=== PATIENT | male | born 1950 | race Caucasian/White ===

== ENCOUNTER 2019-02-11 07:28 | Day surgery (SDC) | payer BC, SELFPAY ==
[2019-02-02 14:42] VITALS: BMI 28.2
[2019-02-02 17:03] LABS: Absolute Neutrophil Count 4.4 X10^3/uL (2.0-7.7); Basophil# 0.06 X10^3/uL; Basophil% 0.9 % (0-1); Eosinophil# 0.13 X10^3/uL; Eosinophils% 1.9 % (0-5); Hematocrit 46.1 % (40-54); Hemoglobin 15.3 g/dL (13.0-16.5); Lymphocyte % 19.3 % (19-41); Mean Corp Hgb Conc 33.2 g/dL (32-36); Mean Corpuscular Hgb 31.6 pg (27.0-32.0); Mean Corpuscular Volume 95.2 fL (80-94); Monocyte% 11.9 % (0-10); NRBC Flagged by Analyzer 0 % (0-5); Neutrophil # 4.43 X10^3/uL (2.7-7.7); Neutrophil % 65.6 % (47-70); Platelet Count 206 K/mm3 (150-450); RBC Distribution Width CV 13.1 % (11.6-14.6); RBC Distribution Width SD 44.6 fl (35.1-43.9); Red Blood Count 4.84 M/mm3 (4.6-6.2); White Blood Count 6.8 K/mm3 (4.4-11.0)
[2019-02-02 17:12] LABS: Partial Thromboplast Time 26.5 Seconds (24.1-36.2); Prothrombin Time (Protime)PT. 12.8 SECONDS (11.7-14.9)
[2019-02-02 18:10] LABS: Anion Gap 9 (5-15); BUN 10 mg/dL (7-18); BUN/Creat Ratio 10.9 RATIO (10-20); Calcium,Total 9.2 mg/dL (8.5-10.1); Chloride 101 mmol/L (98-107); Creatinine, Serum 0.92 mg/dL (0.70-1.30); EST Glomerular Filtration Rate 87 mL/min (>60); Est Glom Filt Rate - Afr Amer 105 mL/min (>60); Glucose 97 mg/dL (74-106); Potassium 3.9 mmol/L (3.5-5.1); Sodium Level 140 mmol/L (136-145)
[2019-02-11] VITALS (28 sets, daily range): BP systolic 76–185; BP diastolic 51–110; PULSE 63–106; RESP 14–45; TEMP 35.7–36.3; O2SAT 82–97; BMI 26.0; BMI 25.7; BMI 25.8
[2019-02-11] MEDS: 0.9% Normal Saline 1,000 ML 60 ML IV (11:45)
[2019-02-11] MEDS: hydrALAZINE 20 MG/ML Vial 5 MG IV (12:35)
--- NOTE | 2019-02-11 12:38 | DCINST_ITS ---
Discharge Diet: Low fat/ Low Cholesterol Discharge Activity: Return to Normal Activity May shower in (days): 1 - No tub baths for 5 days May resume sexual activity in: 1-2 weeks Lifting Restrictions: Do not lift anything greater than 10 pounds for 3 days Call your doctor if your incision/area has: Continuous Slow Oozing, Sudden Increased Bleeding, Increased Pain/ Swelling, Increased Redness, Foul Smelling Discharge, Swelling at the incision site Call your doctor if you observe: Fever of 101 or Higher, Shortness of breath, Chest pain Remove Dressing in (days):: 1 Cleanse incision/area with: Soap & Water Additional Instructions: You will continue with Aspirin and Brilinta therapy. Brilinta is an antiplatelet medication needed for coronary artery disease and protection for your stents for at least one year. If anyone asks you to stop this medication please call the [facility] Office at [phone]. You will keep your scheduled office appointment with Dr. Martinez on 03/21/2019 at 11 AM. Please consider cholesterol-lowering medication also known as a statin medication. This is beneficial to limit coronary artery disease and preserve bypass graft. If you have any questions or concerns at any point please call the [facility] Office at [phone]. Allergies/Adverse Reactions: Allergies No Known Allergies Allergy (Unverified 02/02/19 14:31) Medications to take at Discharge aspirin 81 mg tablet,delayed release 81 mg PO DAILY #90 tab 02/03/19 carvedilol 6.25 mg tablet 6.25 mg PO BID #180 tab 02/03/19 furosemide 40 mg tablet 40 mg PO QAM #90 tab 02/03/19 lisinopril 20 mg tablet 20 mg PO DAILY #90 tab 02/03/19 Ticagrelor [Brilinta] 90 mg PO BID #180 tab 02/11/19 The following prescriptions were given: Ticagrelor [Brilinta] 90 mg PO BID #180 tab Transmission Status: Pending to [facility]/pharmacy #[id number] Primary Care Physician: Care Physician,No Primary [Primary Care Provider] - Test Results: Test results from this visit will be discussed in further detail at your follow- up appointment, if applicable. Please Follow Up With: Dr. Martinez When: 03/21/2019 at 11:00 AM Proposed Discharge Date: 02/12/19 Cardiac Rehabilitation Info Cardiac Rehabilitation Program Information: Cardiac Rehabilitation is important for patients like you who are recovering from a heart problem. Cardiac rehabilitation programs are recognized as integral to the continued care of the patient with coronary heart disease. The cardiac rehabilitation program is designed to optimize a patient's physical, psychological, and social functioning. Health child day care provider work in cardiac rehabilitation programs and assist you with getting the treatments you need to get stronger and healthier - like exercise, healthy eating habits, and medications. Cardiac rehabilitation has been show to help people with heart problems live longer and have better life enjoyment than people who do not go to cardiac rehabilitation. Please contact the Cardiac Rehabilitation Program at [facility] at in two weeks if you have not heard from them.
[2019-02-11] MEDS: Furosemide 40 MG/4 ML Vial IV (12:52)
--- NOTE | 2019-02-11 12:55 | NURSING ---
Sudden onset severe SOB, diaphoretic, RR 40's, labored and tripoding. Denies chest pain. Lungs coarse t/o. BP elevated. Dr. Martinez notified. Attempted bipap, pt unable to tolerate. Stat EKG obtained
[2019-02-11] MEDS: 0.9% NaCl Peripheral Flush Adult/Peds IV ×2 (13:01→13:19)
[2019-02-11] MEDS: Morphine 2 MG/ML Syringe 1 MG IV (13:05)
[2019-02-11] MEDS: Nitroglycerin Infusion 250 ML 12 MG CONT INF (13:09)
--- NOTE | 2019-02-11 13:21 | CASEMGMT ---
RN CM Note: Attempted to see pt x 2. Will need Brillinta Savings card on dc. Placed in front of chart. Randal DIETZN RN ACM
--- NOTE | 2019-02-11 13:30 | CL.I_ITS ---
Patient Name: NICHOLE HURTADO Study Date: 02/11/2019 Performing: Soraya Martinez MD Ht: 69 inches 175 cm : 1950 Wt: 172 lbs 77.92 kg Age: 68 Gender: male BSA: 1.93 PROCEDURE(S) PERFORMED [id number]/LV/CABG [id number] AND/OR PTCA, SINGLE GRAFT [id number] W OR WO PTCA, SINGLE CORONARY ARTERY CLINICAL PROFILE AND CO-MORBIDITIES Indications: Cardiomyopathy Heart Failure: NYHA Class: 3, Newly Diagnosed: No, Heart Failure Type: Systolic CAD Presentations: Unstable angina. CONCLUSIONS Successful PCI with Drug eluting stent and PTCA to the dLAD at the anastomosis of ORELLANA to LAD and MERLE to distal portion of ORELLANA to LAD Successful PCI with Drug eluting stent and PTCA to the dLAD at the anastomosis of ORELLANA to LAD and MERLE to distal portion of ORELLANA to LAD RECOMMENDATIONS ASA Indefinitley Brilinta for at least 12 months Routine post interventional care Follow up with primary transplanter DESCRIPTION OF PROCEDURE The patient arrived to the procedure lab. The risks and benefits of the procedure as well as a full d escription of our services here and lack of surgical backup were fully explained to the patient and/o r their significant other prior to the catheterization. The Timeout was completed, verifying the michaela ect patient and procedure. The patient's procedural site was prepped and draped in the usual fashion. Local anesthetic was given subcutaneously to left radial region with Lidocaine 2%. Using a modified Seldinger technique, arterial access was obtained via the left radial artery, a 6Fr sheath was insert ed.. Left internal mammary artery graft to the LAD selective angiography was performed in multiple v iews using a 5 Fr. IM catheter. Left Ventriculography was performed in NEIL projection using a 5 Fr. J R4. LV to AO pullback pressures were then recorded. Right Coronary Artery selective angiography was t hen performed in multiple views using a 5 Fr. JR 4 catheter. Left Coronary Artery selective angiography was performed in multiple views using a 5 Fr. JL3.5 catheter IM Guide catheter was inserted and engaged into the ORELLANA. BMW Guide wire was advanced to the LAD. Emerge 2.00x8 Balloon catheter was inserted. PTCA balloon inflated at 8 atms for 19 secs. Angiogram performed post balloon dilatation. Synergy 2.25x8 Drug Eluting stent was inserted. Angiogram performe d post stent deployment. Synergy 4.00x16 Drug Eluting stent was inserted. Angiogram performed post st ent deployment. The arterial sheath was pulled and a TR Band was applied for hemostasis w/ 14ml air CORONARY ANGIOGRAPHY DOMINANCE: Right Dominant LEFT HEART ASSESSMENT Left Ventricular Ejection Fraction: by LV Gram 20 % Global Hypokinesis - Severe LEFT MAIN: Mild luminal irregularities LEFT ANTERIOR DESCENDING ARTERY: OSTIAL LAD: is occluded, mid and distal LAD fill via ORELLANA which is patent. CIRCUMFLEX ARTERY: PROX CIRC: 30 % Stenosis RIGHT CORONARY ARTERY: PROX RCA: 100 % Stenosis. distal RCA fills via collaterals from LAD which fills via ORELLANA GRAFTS: ORELLANA graft to the LAD is patent with what appears to be a kink or napkin ring narrowing causi ng about 80% stenosis. There is a an 80-90% stenosis in the anastomosis with the LAD. Since this was the main vessel supplying the majority of the myocardium, and the patient has new drop in EF, we proc eeded with PCI. The ORELLANA kink/ napkin ring lesion was also fixed to ensure there is no proximal compr omise to flow into the stent in the anastomosis of ORELLANA to LAD. VALVE FINDINGS: No Aortic Valve Stenosis No Mitral Insufficency INTERVENTION INFORMATION LESION SITE: LAD (Distal) ORELLANA > to LAD (Mid) Segment Number: 13-Mid-LAD artery segment - mLAD , Les ion Location: Distal Lesion Complexity: High/C, chronic total occlusion: No, lesion at bifurcation: No, thrombus present: No, lesion length: 5 mm, culprit lesion: Yes, Previously treated lesion: No Pre Stenosis: 85 % Pre intervention GRAY flow: 3 PROCEDURE: Drug Eluting Stent with pre dilatation. Post Stenosis: 0 % Post intervention GRAY flow: 3 Lesion Devices: Cardinal 6 Fr IM 100cm Guide Catheter Jim .014 BMW [place] Straight 190cm Willi Sci Synergy MR MERLE 2.25x08 Willi Sci EMERGE MR 2.00x08 BALLOON LESION SITE: ORELLANA > to LAD (Mid) Segment Number: 13-Mid-LAD artery segment - mLAD , Lesion Location : Body Lesion Complexity: High/C, chronic total occlusion: No, lesion at bifurcation: No, thrombus present: No, lesion length: 12 mm, culprit lesion: Yes, Previously treated lesion: No Pre Stenosis: 80 % Pre intervention GRAY flow: 3 PROCEDURE: Drug Eluting Stent Post Stenosis: 0 % Post intervention GRAY flow: 3 Lesion Devices: Cardinal 6 Fr IM 100cm Guide Catheter Jim .014 BMW [place] Straight 190cm Willi Sci Synergy MR MERLE 4.00x16 COMPLICATIONS No Complications PROCEDURE MEDICATIONS Oxygen: 2 L/min via nasal cannula Brilinta 180 mg PO @ 02/11/2019 11:16:15 Heparin given IA 02/11/2019 10:09:35 Heparin 3000 unit(s) IV 02/11/2019 10:32:15 Nitro 200 mcg IC 02/11/2019 10:50:10 Verapamil 2.5mg, Ntg 100mcgs, 3000 units of Heparin given IA 02/11/2019 10:09:35 IV Bolus: .9 NaCl 300 ml total 02/11/2019 11:01:38 SUMMARY OF HEMODYNAMIC DATA Time AIR REST ECG 07:52:47 AO 108/70 (88) SA 10:15:25 LV 128/7, 25 10:20:04 LV 133/4, 22 10:20:11 LV 126/1, 24 10:21:39 LVp 131/3, 21 10:21:50 AOp 132/69 (95) 10:21:55 Signed By Soraya Martinez MD On 02/11/2019 1:29:08 PM Soraya Martinez MD
--- NOTE | 2019-02-11 14:12 | CPS ---
RT called stat for bipap therapy, pt diaphoretic, tripod breathing. Bipap therapy attempted x2, tried encouraging pt, pt could not tolerate bipap. Pt resting comfortably on 4L NC.
--- NOTE | 2019-02-11 14:27 | CRPHASE1 ---
Patient Communication PHII Cardiac Rehab Discussed with Patient:: Yes Guide to Cardiac Rehab Given to Patient:: Yes Cardiac Rehab Facility Choice List Given to Patient:: Yes Choice Program [facility] PHII:: Communication Given to CR, Refer to [facility] Evp Business Development:: Cayla Martinez Phase II Cardiac Rehab:: Yes Sessions:: 36 sessions - 3 days/wk, 12 weeks Risk Factors/Lifestyle Smoking Status: Never smoker Hx Dyslipidemia: Yes Hx Obesity: No Height: 5 ft 9 in Weight:: 175 lb BMI: 25.8 ETOH: No Caffeine: Yes Substance Abuse: No Risk Factor for Sedentary Lifestyle: Moderate Risk Family History: Family History (Last Reviewed 02/02/19 @ 15:16 by Cayla Martinez MD) Father Alzheimer's dementia Mother Heart disease Brother Heart disease Family History: High Cholesterol, Heart Disease, Hypertension, - Past Cardiac Illness: Ejection Fraction - LVEF 17%, Coronary Artery Disease, Coronary Artery Bypass Graft Phase I Education Given On:: [place], Nutrition, Antiplatelet medication, CHF Knowledge of Condition:: Yes Learning Preferences: Verbal, Written, Audio/Visual, Demonstration Medical/Surgical History [place]:: Yes CAD:: Yes Cardiomyopathy:: Yes Hypertension:: Yes Dyslipidemia:: Yes CABG: Yes PTCA:: Yes Discharge/Home/Social Eval Marital Status: Cardiac Rehabilitation Info Cardiac Rehabilitation Program Information: Cardiac Rehabilitation is important for patients like you who are recovering from a heart problem. Cardiac rehabilitation programs are recognized as integral to the continued care of the patient with coronary heart disease. The cardiac rehabilitation program is designed to optimize a patient's physical, psychological, and social functioning. Health day care center director work in cardiac rehabilitation programs and assist you with getting the treatments you need to get stronger and healthier - like exercise, healthy eating habits, and medications. Cardiac rehabilitation has been show to help people with heart problems live longer and have better life enjoyment than people who do not go to cardiac rehabilitation. Please contact the Cardiac Rehabilitation Program at [facility] at in two weeks if you have not heard from them.
--- NOTE | 2019-02-11 14:37 | CRPH1.INSTRU ---
General Education CAD and cardiac anatomy and function:: Not instructed Explanation of diagnoses and procedures:: Not instructed Sign/Symptoms of OK:: Not instructed Antiplatelet therapy: Not instructed Proper use of NTG-SL: Not instructed Emergency procedures and activation of EMS: Not instructed Compliance of all prescribed medications: Not instructed Dyslipidemia Patient Dyslipidemia Risk Factors Are:: Total Cholesterol, Triglycerides, HDL, LDL Recommendations Include:: Lipid profile provided Dyslipidemia Response Code:: Patient communicates acknowledgment Overweight/Obesity Patient Overweight/Obesity Risk Factors Are:: Overweight = 26-29 Recommendations Include:: Weight loss of 5-10%, Reduced calorie diet, Exercise 5-7 times/week Overweight/Obesity:: Patient communicates acknowledgment Hypertension Recommendations Include:: Maintain BP <130/85, DASH dietary guidelines, Decrease/maintain normal body weight Hypertension:: Patient communicates acknowledgment Heart Disease Patient Heart Disease Risk Factors Are:: Family history of heart disease < 65 years old, Previous cardiac event Recommendations Include:: Educated family members of their risk, Educated family members of importance of prevention of heart disease Heart Disease Response Code:: Patient communicates acknowledgment, Family communicates acknowledgment Sedentary Recommendations Include:: Aerobic exercise 5-7 times/week for 20-30 minutes continuously, Benefits of regular exercise, Discussed home walking program, Monitored Outpatient Cardiac Rehab Sedentary Response Code:: Patient communicates acknowledgment Stress Patient Stress Risk Factors Are:: Patient denies stress as a risk factor Stress Response Code:: Patient communicates acknowledgment
[2019-02-11] MEDS: TICAGRELOR 90 MG TABLET PO (20:56)
[2019-02-11] MEDS: Carvedilol 6.25 MG Tablet PO (20:56)
[2019-02-12] VITALS (9 sets, daily range): BP systolic 106–154; BP diastolic 59–91; PULSE 66–77; RESP 14–22; TEMP 36.1–36.6; O2SAT 95–100
[2019-02-12 05:11] LABS: Hematocrit 42.5 % (40-54); Hemoglobin 14.5 g/dL (13.0-16.5); Mean Corp Hgb Conc 34.1 g/dL (32-36); Mean Corpuscular Hgb 32.2 pg (27.0-32.0); Mean Corpuscular Volume 94.4 fL (80-94); Mean Platelet Vol. 10.6 fl (6.2-12.0); Platelet Count 156 K/mm3 (150-450); RBC Distribution Width CV 13.5 % (11.6-14.6); RBC Distribution Width SD 46.2 fl (35.1-43.9)
[2019-02-12 05:25] LABS: ALB/GLOB Ratio 1.1 RATIO (0.9-2.4); AST(SGOT) 22 U/L (15-37); Alanine Aminotransfer ALT/SGPT 19 U/L (16-61); Albumin, Serum 3.3 g/dL (3.2-5.0); Alkaline Phosphatase 54 U/L (45-117); Anion Gap 9 (5-15); BUN 17 mg/dL (7-18); BUN/Creat Ratio 20.1 RATIO (10-20); Calcium,Total 8.5 mg/dL (8.5-10.1); Chloride 105 mmol/L (98-107); Creatinine, Serum 0.85 mg/dL (0.70-1.30); EST Glomerular Filtration Rate 96 mL/min (>60); Est Glom Filt Rate - Afr Amer 116 mL/min (>60); Estimated Creatinine Clearance 83.18 ml/min; Globulin 3.1 g/dL (2.2-4.2); Glucose 97 mg/dL (74-106); Potassium 3.9 mmol/L (3.5-5.1); Protein, Total 6.4 g/dL (6.4-8.2); Sodium Level 139 mmol/L (136-145)
[2019-02-12] MEDS: Carvedilol 6.25 MG Tablet PO (08:40)
[2019-02-12] MEDS: Aspirin E.C. 81 MG Tablet PO (08:40)
[2019-02-12] MEDS: Lisinopril 20 MG Tablet PO (08:41)
[2019-02-12] MEDS: TICAGRELOR 90 MG TABLET PO (08:41)
== END 2019-02-12 14:10 | disposition home or self-care (01) ==
LOC: CLSP 07:30 → ICU 02-14 10:18
PROVIDERS: Referring Provider Specialist; Visit Provider Specialist
DX: I25.110 Atherosclerotic heart disease of native coronary artery with unstable angina pectoris (principal); I25.5 Ischemic cardiomyopathy; I11.0 Hypertensive heart disease with heart failure; I50.9 Heart failure, unspecified; Z95.1 Presence of aortocoronary bypass graft; E78.5 Hyperlipidemia, unspecified; R09.89 Other specified symptoms and signs involving the circulatory and respiratory systems; Z79.82 Long term (current) use of aspirin; Z79.899 Other long term (current) drug therapy; Z87.891 Personal history of nicotine dependence
CPT/HCPCS: 36415; 80048; 80053; 85025; 85027; 85610; 85730; 92928; 92937; 93005; 93459; J7030; J7040; Q9967; A4216; C1725; C1769; C1874; C1887; C1894; C9600; C9604; J1327; J1940

== ENCOUNTER → 2019-07-05 09:33 | Outpatient (CLI) | payer BC, SELFPAY ==
[2019-02-11 14:35] VITALS: BMI 25.8
[2019-03-29 14:38] VITALS: BMI 25.7
--- NOTE | 2019-07-05 12:12 | STRESSREP ---
Stress Test Report Procedure: MUGA scan Date: 07/05/2019 Indications: To assess LVEF, cardiomyopathy Report: LVEF by MUGA scan was 31%. Conclusions: Left ventricular ejection fraction was 31%.
== END ==
PROVIDERS: Referring Provider Specialist; Visit Provider Specialist
DX: I25.10 Atherosclerotic heart disease of native coronary artery without angina pectoris (principal); I25.5 Ischemic cardiomyopathy; I10 Essential (primary) hypertension; Z95.1 Presence of aortocoronary bypass graft; Z95.5 Presence of coronary angioplasty implant and graft
CPT/HCPCS: 78473; A9560

== ENCOUNTER 2019-09-08 09:47 | Day surgery (SDC) | payer BC, SELFPAY ==
[2019-02-11 14:35] VITALS: BMI 25.8
[2019-07-12 13:50] VITALS: BMI 25.7
[2019-08-01 10:05] LABS: Bacteria 0 SEEN /hpf (None Seen); Mucous, Urine 0 SEEN /hpf (<or=2+); Red Blood Cells-Urine 0 SEEN /hpf (0-5); Squamous Epithelial Cells - UA 0 SEEN /hpf (0-5); White Blood Cells 0 SEEN /hpf (0-5)
[2019-08-01 10:30] LABS: Hematocrit 37.8 % (40-54); Hemoglobin 13.4 g/dL (13.0-16.5); Mean Corp Hgb Conc 35.4 g/dL (32-36); Mean Corpuscular Hgb 33.9 pg (27.0-32.0); Mean Corpuscular Volume 95.7 fL (80-94); Mean Platelet Vol. 9.8 fl (6.2-12.0); Platelet Count 175 K/mm3 (150-450); RBC Distribution Width CV 13.1 % (11.6-14.6); RBC Distribution Width SD 45.5 fl (35.1-43.9); Red Blood Count 3.95 M/mm3 (4.6-6.2); White Blood Count 7.7 K/mm3 (4.4-11.0)
[2019-08-01 10:35] LABS: Color, Urine Yellow (Yellow); Glucose, Dipstick Normal (Normal); Ketone-Dipstick Negative (Negative); Leukocyte Esterase-Dipstick Negative /ul (Negative); Nitrite-Dipstick Negative (Negative); Occult Blood-Urine Negative /ul (Negative); Protein-Dipstick Negative (Negative); Specific Gravity, Urine 1.005 (1.002-1.030); Urine Bilirubin Dipstick Negative (Negative); Urine Clarity Clear (Clear); Urine Urobilinogen Normal (Normal)
[2019-08-01 10:36] LABS: Prothrombin Time (Protime)PT. 12.7 SECONDS (11.7-14.9)
[2019-08-01 10:59] LABS: Anion Gap 7 (5-15); BUN 20 mg/dL (7-18); BUN/Creat Ratio 14.1 RATIO (10-20); Calcium,Total 9.7 mg/dL (8.5-10.1); Chloride 92 mmol/L (98-107); Creatinine, Serum 1.42 mg/dL (0.70-1.30); EST Glomerular Filtration Rate 53 mL/min (>60); Est Glom Filt Rate - Afr Amer 64 mL/min (>60); Glucose 107 mg/dL (74-106); Potassium 4.1 mmol/L (3.5-5.1); Sodium Level 127 mmol/L (136-145)
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
[2019-09-07 13:49] VITALS: BMI 24.5
[2019-09-08] VITALS (12 sets, daily range): BP systolic 92–120; BP diastolic 55–76; PULSE 59–65; RESP 13–16; TEMP 36.6–37.1; O2SAT 95–99
[2019-09-08 10:50] LABS: Anion Gap 8 (5-15); BUN 16 mg/dL (7-18); BUN/Creat Ratio 11.3 RATIO (10-20); Calcium,Total 9.5 mg/dL (8.5-10.1); Chloride 93 mmol/L (98-107); Creatinine, Serum 1.41 mg/dL (0.70-1.30); EST Glomerular Filtration Rate 53 mL/min (>60); Est Glom Filt Rate - Afr Amer 64 mL/min (>60); Estimated Creatinine Clearance 49.45 ml/min; Glucose 101 mg/dL (74-106); Potassium 4.5 mmol/L (3.5-5.1); Sodium Level 127 mmol/L (136-145)
--- NOTE | 2019-09-08 12:03 | OP.PCM_ITS ---
Report of Operation Date of Procedure: 09/08/19 Description of Procedure: Diagnosis: Ischemic Cardiomyopathy with NYHA Class II; Left ventricular ejection fraction 30% despite optimal medical therapy. ICD for primary prevention Preoperative diagnosis implantation of lawrencel gaylaber ICD Postoperative diagnosis same as above After informed consent and IV antibiotics the patient was brought to the [place] catheterization laboratory. The left side of the chest was prepped and draped in the usual sterile manner. The patient was sedated with intermittent boluses of IV Versed and fentanyl as well as subcutaneous 1% lidocaine. An incision was made inferior to the clavicle to accommodate the size of the hardware device. The pocket was created using blunt and Bovie dissection. Hemostasis was obtained. Using the Seldinger technique the axillary vein was cannulated once and a guidewire was advanced under fluoroscopic guidance. Over the guidewire a sheath was advanced. Through this sheath, the electrode was positioned under fluoroscopic guidance into the right ventricle and was actively fixated. Once actively fixated, the lead was tested to check for proper sensing, capture threshold, impedance and to exclude diaphragmatic stimulation. Once the lead was implanted and all electrical parameters were confirmed to be functioning normally with appropriate values, the leads was then sutured to the pectoralis muscle with 2-0 silk on the Silastic collar ?2. The sponge and needle count were correct. Hemostasis was obtained. Antibiotic solution was used to flush the pocket. The new device was brought to the field. The lead was placed in the appropriate position of the header of the device and were secured by the setscrews and confirmed by the tug test. The device and the leads were then placed in the pocket. Pocket was closed with a deep layer of running 2-0 Vicryl, superficial layer of running 4-0 Vicryl and skin with Steri- Strips that were covered with a rolled 4 x 4's and Tegaderm. The patient left the lab with the device programmed to chronic parameters. There were no complications. Implanted system is a single chamber Graph Story ICD Lead and device serial and model numbers are available in the chart documents provided by the device company hospital sales representative procedure summary.
--- NOTE | 2019-09-08 14:45 | RAD_ITS ---
STUDY: X-RAY CHEST REASON FOR EXAM: Male, 69 years old. 2 HRS. Post icd insertion TECHNIQUE: Single AP portable view of the chest. COMPARISON: None. FINDINGS: EKG electrodes are seen. Mild increased markings at the left lung base suggestive of linear atelectasis and/or scarring. There is no demonstrated pleural abnormality. There is no evidence of pneumothorax. There is mild cardiac enlargement. A left-sided ICD has been placed. Normal mediastinum and hardik. Normal visualized pulmonary arteries. There is atherosclerotic calcification of the aortic arch with tortuosity. There are degenerative changes of the visualized thoracic spine. Normal visualized ribs, clavicles, and shoulders. There is no demonstrated abnormality of the visualized soft tissue structures of the upper abdomen. RAD/Chest 1 View (Portable) IMPRESSION: A left-sided ICD has been placed. No evidence of pneumothorax. Electronically Signed: Santhosh Garcia, at 14:52 EDT , Service support ,
[2019-09-08] MEDS: Carvedilol 6.25 MG Tablet PO (21:10)
--- NOTE | 2019-09-09 02:52 | RAD_ITS ---
STUDY: X-RAY CHEST REASON FOR EXAM: Male, 69 years old. Post permanent ICD/Pacemaker. Expiration view TECHNIQUE: Single frontal view of the chest. COMPARISON: September 09, 2019 0602 hours FINDINGS: No pneumothorax identified. Bibasilar atelectasis/scarring. Chronic lung changes without focal consolidation. No pleural effusion. Borderline heart size. Aortic calcifications. Left AICD. EKG leads artifacts. Vascular stent projects over the left hilum/cardiac silhouette. There are diffuse degenerative changes of the visualized thoracic spine. There is degenerative osteoarthritis of the bilateral shoulders. L1 compression fracture deformity with greater than 50% loss of height, age indeterminate. There is no demonstrated abnormality of the visualized soft tissue structures of the upper abdomen. RAD/Chest 1 View IMPRESSION: Age-indeterminate L1 compression fracture deformity. Correlate with dedicated lumbar spine imaging if there is concern for acute fracture. No pneumothorax identified. Cardiomegaly. Chronic lung changes. Electronically Signed: Yury Mcgarry, at 6:25 EDT Tel , Service support ,
[2019-09-09 03:00] VITALS: PULSE 61
[2019-09-09 03:26] VITALS: BP 110/63; PULSE 60; RESP 17; TEMP 36.5; O2SAT 98
--- NOTE | 2019-09-09 05:55 | RAD_ITS ---
STUDY: X-RAY CHEST REASON FOR EXAM: Male, 69 years old. Post permanent ICD/Pacemaker TECHNIQUE: Frontal and lateral views of the chest. COMPARISON: September 08, 2019 FINDINGS: No pneumothorax identified. Bibasilar atelectasis/scarring. Chronic lung changes without focal consolidation. No pleural effusion. Borderline heart size. Aortic calcifications. Left AICD. EKG leads artifacts. Vascular stent projects over the left hilum. There are diffuse degenerative changes of the visualized thoracic spine. There is degenerative osteoarthritis of the bilateral shoulders. L1 compression fracture deformity with greater than 50% loss of height, age indeterminate. No prior studies available for comparison. There is no demonstrated abnormality of the visualized soft tissue structures of the upper abdomen. RAD/Chest PA and Lateral IMPRESSION: Age-indeterminate L1 compression fracture deformity. Correlate with dedicated lumbar spine imaging if there is concern for acute fracture. No pneumothorax identified. Cardiomegaly. Chronic lung changes. Electronically Signed: Yury Mcgarry, at 6:22 EDT Tel , Service support ,
[2019-09-09 07:15] VITALS: PULSE 63
[2019-09-09 09:11] VITALS: BP 112/62; PULSE 72; RESP 16; TEMP 36.6; O2SAT 94
[2019-09-09] MEDS: Aspirin E.C. 81 MG Tablet PO (09:17)
[2019-09-09] MEDS: Furosemide 40 MG Tablet PO (09:18)
[2019-09-09] MEDS: Carvedilol 6.25 MG Tablet PO (09:18)
[2019-09-09] MEDS: Lisinopril 20 MG Tablet PO (09:18)
[2019-09-09] MEDS: TICAGRELOR 90 MG TABLET PO (09:18)
--- NOTE | 2019-09-09 09:26 | DCINST_ITS ---
Discharge Activity: Return to Normal Activity - as you feel able. No excessive stretching. No lifting your arm over your head (keep elbow below shoulder level) until seen for your pacemaker check. Do not lift your elbow away from your side until you are seen for your first visit. Keep the arm sling on if it helps remind you not to lift your arm. Additional Activity Instructions:: May shower or bathe on [thursday]. Do not scrub the incision or soak in the tub. Just wash with soap and let the water run over the incision. Gently pat dry with towel. Call your doctor if your incision/area has: Continuous Slow Oozing, Sudden Increased Bleeding, Increased Pain/ Swelling, Increased Redness, Foul Smelling Discharge, Swelling at the incision site Call your doctor if you observe: Fever of 101 or Higher, Shortness of breath, Dizziness, Fainting spells, Swelling in the ankles, Chest pain, Prolonged hiccoughing, Increased palpitations (irregular heartbeat) Remove Dressing in (days):: 2 - per sues instructions Additional Dressing/Incision Instructions:: When dressing is removed, wash and dry incision. Keep covered with a light bandage if it is rubbing against your clothing. Do not cover the incision with an airtight bandage. Change the bandage daily. Do not remove steri strips. The strips will fall off on their own. Additional Instructions: Signs and Symptoms to Report to Your Doctor at Once - call your doctor's office or Doctor's Registry ([phone]) Call 911 or go to the nearest Emergency Department if you feel you need urgent care. *Infection (fever, increased redness or swelling at the incision site, drainage from the incision increased pain at the pacemaker site) *Shortness of breath *Dizziness *Fainting spells *Swelling in the ankles *Chest pain *Prolonged hiccoughing *Increased palpitaitons (irregular heartbeat) Medications: Take your pain medication as directed. Refer to your discharge instruction sheet for a list of medications you are to take. Allergies/Adverse Reactions: Allergies No Known Allergies Allergy (Unverified 07/12/19 13:40) Medications to take at Discharge aspirin 81 mg tablet,delayed release 81 mg PO DAILY #90 tab 02/03/19 carvedilol 6.25 mg tablet 6.25 mg PO BID #14 tab 06/14/19 furosemide 40 mg tablet 40 mg PO QAM #7 tab 06/14/19 lisinopril 20 mg tablet 20 mg PO DAILY #7 tab 06/14/19 ticagrelor 90 mg tablet 90 mg PO BID #14 tab 06/14/19 Primary Care Physician: Care Physician,No Primary [Primary Care Provider] - Test Results: Test results from this visit will be discussed in further detail at your follow- up appointment, if applicable.
== END 2019-09-09 09:27 | disposition home or self-care (01) ==
LOC: CLSP 09:54 → PCU 09-09 07:43
PROVIDERS: Specialist; Referring Provider Internal Medicine Cardiovascular Disease; Visit Provider Internal Medicine Cardiovascular Disease
DX: I25.10 Atherosclerotic heart disease of native coronary artery without angina pectoris (principal); I25.5 Ischemic cardiomyopathy; I11.0 Hypertensive heart disease with heart failure; I50.9 Heart failure, unspecified; E78.5 Hyperlipidemia, unspecified; Z95.1 Presence of aortocoronary bypass graft; Z95.5 Presence of coronary angioplasty implant and graft; Z87.891 Personal history of nicotine dependence
CPT/HCPCS: 33249; 36415; 71045; 71046; 80048; 81001; 85027; 85610; 93641; 99152; 99153; J7040; J7050; C1894

== ENCOUNTER 2021-04-16 16:02 | Inpatient (IN) | payer BC, MEDICARE, SELFPAY ==
[2019-02-11 14:35] VITALS: BMI 25.8
[2021-04-16] VITALS (8 sets, daily range): BP systolic 120–145; BP diastolic 80–111; PULSE 88–106; RESP 18–22; TEMP 35.7–36.9; O2SAT 94–100; BMI 25.1; BMI 27.5
--- NOTE | 2021-04-16 16:08 | EKG12_ITS ---
Test Reason : SOB Blood Pressure : / mmHG Vent. Rate : 104 BPM Atrial Rate : 098 BPM P-R Int : 000 ms QRS Dur : 102 ms QT Int : 374 ms P-R-T Axes : 000 -18 141 degrees QTc Int : 491 ms Atrial fibrillation Septal infarct (cited on or before 11-FEB-2019) ST & T wave abnormality, consider lateral ischemia Abnormal ECG Confirmed by JOSEPH VORA MD ([id number]), features editor MATTHEW SHAH ([id number]) on 04/17/2021 1:08:09 PM Also confirmed by JOSEPH VORA MD ([id number]), features editor KAREEM BOYD ([id number]) on 04/17/2021 1:24:49 PM Referred By: JOSE VUONG Confirmed By:JOSEPH VORA MD
[2021-04-16 16:34] LABS: Absolute Lymphocyte Count 0.69 X10^3/uL (0.83-4.51); Absolute Neutrophil Count 6.3 X10^3/uL (2.0-7.7); Basophil# 0.04 X10^3/uL; Basophil% 0.5 % (0-1); Hematocrit 47.3 % (40-54); Hemoglobin 15.1 g/dL (13.0-16.5); Lymphocyte # 0.69 X10^3/ul (0.83-4.51); Lymphocyte % 8.7 % (19-41); Mean Corp Hgb Conc 31.9 g/dL (32-36); Mean Corpuscular Hgb 30.2 pg (27.0-32.0); Mean Corpuscular Volume 94.6 fL (80-94); Mean Platelet Vol. 10.5 fl (6.2-12.0); Monocyte# 0.84 X10^3/uL; Monocyte% 10.6 % (0-10); NRBC Flagged by Analyzer 0 % (0-5); Neutrophil # 6.29 X10^3/uL (2.7-7.7); Neutrophil % 79.7 % (47-70); Platelet Count 228 K/mm3 (150-450); RBC Distribution Width CV 15.7 % (11.6-14.6); RBC Distribution Width SD 54.1 fl (35.1-43.9); White Blood Count 7.9 K/mm3 (4.4-11.0)
[2021-04-16 16:50] LABS: Anion Gap 11 (5-15); BUN 25 mg/dL (7-18); BUN/Creat Ratio 21.4 RATIO (10-20); Calcium,Total 9.9 mg/dL (8.5-10.1); Chloride 99 mmol/L (98-107); Creatinine, Serum 1.17 mg/dL (0.70-1.30); EST Glomerular Filtration Rate 65 mL/min (>60); Est Glom Filt Rate - Afr Amer 79 mL/min (>60); Estimated Creatinine Clearance 61.68 ml/min; Glucose 75 mg/dL (74-106); Potassium 4.8 mmol/L (3.5-5.1); Sodium Level 132 mmol/L (136-145); Troponin-I HS 33 pg/mL (3.0-78.0)
[2021-04-16 17:02] LABS: BNP,B-Type NATRIURETIC PEPTIDE 2578.2 pg/mL (0-100)
--- NOTE | 2021-04-16 17:05 | RAD_ITS ---
STUDY: X-RAY CHEST REASON FOR EXAM: Male, 71 years old. SOB X WEEKS,WORSE TODAY. LOWER EXTREMITY EDEMA. CHEST PAIN TECHNIQUE: XR Chest 1 View COMPARISON: 09/09/2019 FINDINGS: There are bilateral pleural effusions. There are bilateral infiltrates. There is a left sided pacemaker batterypack. Normal size heart. Normal mediastinum and ahrdik. Normal visualized pulmonary arteries. There is atherosclerotic calcification of the aortic arch with tortuosity. There are diffuse degenerative changes of the visualized thoracic spine. There is degenerative osteoarthritis of the bilateral shoulders. There is no demonstrated abnormality of the visualized soft tissue structures of the upper abdomen. RAD/Chest 1 View (Portable) IMPRESSION: There are bilateral pleural effusions. There are bilateral infiltrates. Electronically Signed: Toribio Little MD at 17:25 EST , Service support ,
--- NOTE | 2021-04-16 17:23 | ED.VIS.DYS ---
HPI History of Present Illness Chief Complaint: Shortness of Breath Detail of Chief Complaint: Dyspnea, dyspnea on exertion, pedal edema and new onset A. fib Informant: patient and other (Glue Maker Bone Dr. Martinez) Onset/Context/Timing Onset: Days Context: gradual Timing: Continuous and Waxes and wanes Quality: Positive for Dyspnea on exertion; Negative for Orthopnea, PND and Wheezing Current Severity: Mild Maximum Severity: Moderate Worsened by: Exertion; Not Worsened By Lying flat and Coughing Relieved by: Nothing Associated Symptoms Negative for cough, post nasal drip, ear pain, fever, sore throat or subjective Chest Pain: Positive for None Narrative Narrative: Patient is an elderly male with history of congestive heart failure and EF of 31%, atherosclerotic heart disease with one-vessel bypass surgery 2009. Patient had symptoms of dyspnea and found to have stenosis at the ostium and ORELLANA. Stents were placed. He does have an AICD due to ischemic cardiomyopathy. There also history of essential hypertension and dyslipidemia. He presents because of weight gain, dyspnea and dyspnea on exertion. He denies chest discomfort of any type. He denies any infectious symptoms. He denies GI symptoms. He denies symptoms. He denies history of liver disease. He minimizes things. Case was discussed with cardiology and recommended Lasix twice daily. He is present on 40 mg. He requested Coreg be switched to metoprolol 100 mg XL. This was to treat his A. fib with RVR. PE Risk Factors: Negative for Cancer, OCP + Smoking + > 35, Prior DVT or PE, Recent immobilization, Recent surgery and Recent travel Prior similar symptoms: Yes (CHF and cardiac ischemia) Recent Illness/Hospitalization: No PFSH PFSH Medical History Atherosclerosis of coronary artery of pala heart without angina pectoris Bilateral carotid bruits CHF (congestive heart failure) Dyslipidemia Essential hypertension Ischemic cardiomyopathy Murmur, cardiac Postoperative atrial fibrillation Stenosis of carotid artery Home Medications aspirin 81 mg tablet,delayed release 81 mg PO DAILY #90 tab 02/03/19 [Rx Last Taken 02/11/19] carvedilol 6.25 mg tablet 6.25 mg PO BID #180 tab 02/15/21 [Rx Last Taken Unknown] lisinopril 20 mg tablet 20 mg PO DAILY #90 tab 02/15/21 [Rx Last Taken Unknown] furosemide 40 mg tablet 40 mg PO QAM #90 tab 03/01/21 [Rx Last Taken Unknown] potassium chloride [K-Dur] 20 meq PO DAILY 04/16/21 [History Last Taken Unknown] Allergy/AdvReac Type Severity Reaction Status Date / Time No Known Allergies Allergy Unverified 04/16/21 16:03 Family History Father Alzheimer's dementia Mother Heart disease Brother , Age 40 Heart disease Surgical History History of coronary artery bypass graft History of coronary artery stent placement History of left heart catheterization (~09/04/09) History of right-sided carotid endarterectomy Implantable cardioverter-defibrillator (ICD) in situ (09/08/19) Social History Smoking Status: Former smoker how long ago did patient quit smokin alcohol intake: current alcohol intake frequency: 0-2 drinks per day Alcohol type: wine substance use type: does not use caffeine: Yes Type: coffee Number of servings: 6 ROS ROS ED Constitutional Constitutional ED: Denies chills, fever(s), sweats or weight loss Eyes Eyes: Denies blurry vision, change in vision or diplopia ENT ENT ED: Denies ear pain, rhinorrhea or sore throat Cardiovascular Cardiovascular: Denies chest pain, orthopnea, palpitations, paroxysmal nocturnal dyspnea or racing heartbeat Respiratory/Chest Respiratory/Chest: Reports dyspnea and dyspnea on exertion; Denies cough, orthopnea, paroxysmal nocturnal dyspnea or sputum Gastrointestinal Gastrointestinal: Denies abdominal pain, diarrhea, nausea or vomiting Genitourinary Genitourinary ED: Denies dysuria, hematuria or urinary frequency Musculoskeletal Musculoskeletal: Denies arthralgias, myalgias or neck pain Integumentary Denies Abrasions or rash Neurologic Neurologic: Denies headache(s) or weakness Endocrine Endocrinology: Denies polydipsia, polyphagia or polyuria Hematologic/Lymphatic Hematologic/Lymphatic: Denies easy bruising EXAM Physical Exam Const Vital Signs: 04/16/21 16:06 04/16/21 17:19 04/16/21 17:22 Temperature 97.8 F Temperature Source Temporal Pulse Rate 103 H Respiratory Rate 18 Respiratory Effort Short of Breath Respiratory Pattern Tachypnea Blood Pressure 127/80 H Blood Pressure Mean 95 Pulse Ox 97 Oxygen Delivery Method Room Air Room Air General Appearance ED: Negative for pallor HEENT Reports TM's clear and dry mucous membranes atraumatic; Negative for trauma or tenderness Tympanic Membrane ED: Yes TM's clear Mouth ED: Yes dry mucous membranes Mouth: dry mucous membranes Eyes PERRL and EOMs intact bilaterally Eyes Narrative: Question of scleral icterus. General Eye ED: Yes scleral icterus; Negative for pale conjunctiva Neck no lymphadenopathy, supple, no meningeal signs and no JVD Resp No normal respiratory effort and No clear to auscultation bilaterally Auscultation: rales right and bilateral and diminished lung sounds left (Diminished breath sounds left. There is dullness to percussion.); Negative for rhonchi or wheezes Cardio regular rate, regular rhythm, S1 normal heart sound, S2 normal heart sound and no murmurs GI non-tender, non-distended and no masses Auscultation: normoactive bowel sounds Palpation: soft Back/Spine no CVA tenderness and normal to inspection Extremity Negative for normal to inspection Extremity Narrative: Venous stasis dermatitis with abrasions no evidence of infection General Extremety ED: Yes edema; Negative for tenderness General Extremity: edema Neuro oriented x3 and CN's II-XII intact bilaterally [place] Coma Scale: document GCS findings Spontaneous Obeys Commands Oriented 15 Sensorium / Orientation: alert Motor Exam: strength 5/5 throughout Psych mental status grossly normal Thought Process: normal thought process Skin No no wounds General Skin Exam: jaundice; Negative for pallor Lesions: no lesions Rashes: no rashes Trauma: abrasion MDM MDM MDM Narrative Medical decision making narrative: Need to rule out cardiac ischemia, clinically patient is in heart failure. Will treat with Lasix, Nitropaste and metoprolol as requested by cardiology. Patient will require admission. He is made aware of this. Lab Data Attestation: I reviewed the patient's lab results. Labs: Laboratory Results - last 24 hr 04/16/21 04/16/21 04/16/21 16:25 16:25 16:25 WBC 7.9 RBC 5.00 Hgb 15.1 Hct 47.3 MCV 94.6 H MCH 30.2 MCHC 31.9 L RDW Std Deviation 54.1 H RDW Coeff of Anna 15.7 H Plt Count 228 MPV 10.5 Immature Gran % (Auto) 0.500 Neut % (Auto) 79.7 H Lymph % (Auto) 8.7 L Boyd % (Auto) 10.6 H Eos % (Auto) 0.0 Baso % (Auto) 0.5 Absolute Neuts (auto) 6.3 Absolute Lymphs (auto) 0.69 L Nucleated RBC % 0 Sodium 132 L Potassium 4.8 Chloride 99 Carbon Dioxide 22.0 Anion Gap 11 BUN 25 H Creatinine 1.17 Estim Creat Clear Calc 61.68 Est GFR (MDRD) Af Amer 79 Est GFR (MDRD) Non-Af 65 BUN/Creatinine Ratio 21.4 H Glucose 75 Calcium 9.9 Troponin I High Sens 33 B-Natriuretic Peptide 2578.2 H Radiography Chest X-Ray - ED: 1 View (Single view portable chest x-ray reveals a large pleural effusion on the left. There is mild cephalization. Cardiomegaly. Chest x-ray interpreted by me at 1729.) EKG Initial EKG: Attestation: I personally reviewed and interpreted this EKG as follows: Interpretation: Atrial Fibrillation (Atrial fibrillation with a ventricular rate of 104. QRS duration 102 ms. QT duration 3 and 74 ms. [place] is normal. There is decreased anterior force noted. There is no ossific changes noted as well.) Critical Care Time Critical Care Time: Yes Critical care time (excluding procedures): 30-74 minutes (33 minutes history, physical, discussion with quality analyst/technical writer, documentation, review of prior records, interpretation laboratory results initiation of therapy), Including time spent:, Discussing w/Patient &/or Family/Medical Billing Instructor, Discussing w/Consultants and Arranging Admission or Transfer Discharge Plan Triage Chief Complaint: Shortness of Breath ED Provider: Thang Maharaj Dx/Rx/DC Orders Clinical Impression: Atrial fibrillation, new onset, Ischemic cardiomyopathy, History of coronary artery stent placement, Implantable cardioverter-defibrillator (ICD) in situ, Acute exacerbation of CHF (congestive heart failure), Pleural effusion on left Prescriptions: No Action potassium chloride [K-Dur] 20 mEq Tablet,Er Particles/Crystals 20 meq PO DAILY RF: 0 aspirin [Adult Aspirin Regimen] 81 mg tablet,delayed release (DR/EC) 81 mg PO DAILY Qty: 90 RF: 3 carvedilol 6.25 mg tablet 6.25 mg PO BID Qty: 180 RF: 3 lisinopril 20 mg tablet 20 mg PO DAILY Qty: 90 RF: 3 furosemide 40 mg tablet 40 mg PO QAM Qty: 90 RF: 3 Primary Care Provider: Care Physician,No Primary Referrals: Care Physician,No Primary [Primary Care Provider] - Disposition Disposition: Acute Care Hospital [facility]
[2021-04-16] MEDS: Furosemide 40 MG/4 ML Vial IV (18:02)
[2021-04-16] MEDS: Metoprolol(XL)Succ 100 MG Tablet PO (18:02)
[2021-04-16] MEDS: Nitroglycerin Oint 1 INCH PACKET TD ×2 (18:02→21:18)
[2021-04-16] MEDS: Enoxaparin 80 MG/0.8 ML Syringe SC (18:06)
--- NOTE | 2021-04-16 18:08 | HP.PCM.HOS_ITS ---
Documented by User: Garry STEELE 04/16/21 18:39 HPI - General General Date of Admission: 04/16/21 Date of Service: 04/16/21 Chief Complaint: Shortness of breath HPI Narrative NICHOLE HURTADO is a 71-year-old male who presents to the ED at [facility] on 04/16/2021 on referral from his rewinder operator helper with a chief complaint of shortness of breath with weight gain. Patient reports that for the past month he has just been feeling increasingly weak and ill as he gets increasingly short of breath with exertion, that gets better with rest. Patient also endorses a nonspecific weight gain over the past month in which he feels like he is more swollen in the belly and legs. Patient denies any paroxysmal nocturnal dyspnea, although reports that he does sometimes get short of breath when lying flat on his back. Patient denies any infectious symptoms to include fever, chills, N/V/D. Patient denies any difficulty with defecation or urination. Patient denies any chest pain, palpitations or hemoptysis. Patient reported to the ED today from his rewinder operator helper, Dr. Johnson, office. Past medical history is significant for atherosclerotic heart disease status post CABG and x2 stent. Vital signs in the ED are temperature of 97.8 ?F, HR of 130, BP of 118/52, RR of 16 and patient is currently satting 97% on room air. CBC shows WBCs of 7.9, hemoglobin of 15.1 and platelets are 228. BMP shows sodium at 132, potassium of 4.8, creatinine at 1.1. Initial high-sensitivity troponin is 33. BNP is elevated at 2578. EKG in the ED demonstrated A. fib with RVR. Chest x-ray is significant for left-sided pleural effusion, unable to assess heart size. Patient was initiated on Lasix, rate controlling medications, nitroglycerin and Lovenox while in the ED. [facility] Medical History Atherosclerosis of coronary artery of tetlin heart without angina pectoris Bilateral carotid bruits CHF (congestive heart failure) Dyslipidemia Essential hypertension Ischemic cardiomyopathy Murmur, cardiac Postoperative atrial fibrillation Stenosis of carotid artery Home Medications aspirin 81 mg tablet,delayed release 81 mg PO DAILY #90 tab 02/03/19 [Rx Last Taken 3 Days Ago ~04/13/21] carvedilol 6.25 mg tablet 6.25 mg PO BID #180 tab 02/15/21 [Rx Last Taken 3 Days Ago ~04/13/21] lisinopril 20 mg tablet 20 mg PO DAILY #90 tab 02/15/21 [Rx Last Taken 3 Days Ago ~04/13/21] furosemide 40 mg tablet 40 mg PO QAM #90 tab 03/01/21 [Rx Last Taken Unknown] Allergy/AdvReac Type Severity Reaction Status Date / Time No Known Allergies Allergy Unverified 04/16/21 16:03 Family History Father Alzheimer's dementia Mother Heart disease Brother , Age 40 Heart disease Surgical History History of coronary artery bypass graft History of coronary artery stent placement History of left heart catheterization (~09/04/09) History of right-sided carotid endarterectomy Implantable cardioverter-defibrillator (ICD) in situ (09/08/19) Social History Smoking Status: Former smoker quit date: 04/16/15 pack-years: 40 how long ago did patient quit smokin alcohol intake: current alcohol intake frequency: 0-2 drinks per day Alcohol type: wine details: Reports drinking about 4 glasses of wine per week. substance use type: does not use caffeine: Yes Type: coffee Number of servings: 6 ROS Constitutional Constitutional: Reports change in weight and fatigue; Denies anorexia, chills, fever(s), malaise, night sweats, weakness or other Eyes Eyes: Denies blurry vision, change in eye color, change in vision, discharge from eye(s), double vision, erythema, eye pain, loss of vision or other ENT HEENT: Denies abnormal hearing, dysphagia, ear pain, epistaxis, headache(s), hearing loss, nasal congestion, nasal discharge, post nasal drip, sinus pressure, sore throat or other Cardiovascular Cardiovascular: Reports dyspnea on exertion and orthopnea; Denies chest pain, claudication, edema, lightheadedness, palpitations, paroxysmal nocturnal dyspne a, rapid heart rate, syncope or other Respiratory/Chest Respiratory/Chest: Reports shortness of breath with exertion; Denies cough, dyspnea, excessive phlegm production, hemoptysis, productive cough, shortness of breath at rest, wheezing or other Gastrointestinal Gastrointestinal: Denies abdominal pain, coffee ground emesis, constipation, diarrhea, dyspepsia, hematemesis, hematochezia, loose stools, melena, nausea, vomiting or other Genitourinary Genitourinary: Denies burning urination, difficulty urinating, dysuria, hematuria, nocturia, urinary frequency, urinary hesitancy, urinary incontinence, urinary urgency or other Musculoskeletal Musculoskeletal: Denies arthralgias, back pain, joint pain, joint stiffness, joint swelling, myalgias, neck pain or other Neurologic Neurologic: Denies abnormal gait, abnormal speech, confusion, disequilibrium, dizziness, focal weakness, headache(s), numbness, paresthesias, seizure-like activity, seizures, syncope, tingling, tremor(s) or other Psychiatric Psychiatric: Denies anxiety, depression, homicidal ideation, suicidal ideation or other Endocrine Endocrinology: Denies change in body appearance, cold intolerance, excessive sweating, heat intolerance, polydipsia, polyuria or other Hematologic/Lymphatic Hematologic/Lymphatic: Denies anemia, easy bleeding, easy bruising, lymphadenopathy or other Allergic/Immunologic Allergic/Immunologic: Denies rhinitis, hives, eczemia, asthma or other Vital Signs Vital Signs Vital Signs: 04/16/21 16:06 04/16/21 17:19 04/16/21 17:22 Temperature 97.8 F Temperature Source Temporal Pulse Rate 103 H Respiratory Rate 18 Respiratory Effort Short of Breath Respiratory Pattern Tachypnea Blood Pressure 127/80 H Blood Pressure Mean 95 Pulse Ox 97 Oxygen Delivery Method Room Air Room Air 04/16/21 17:23 04/16/21 18:02 Temperature Temperature Source Pulse Rate 104 H 106 H Respiratory Rate 22 H Respiratory Effort Respiratory Pattern Blood Pressure 145/111 H 136/104 H Blood Pressure Mean 122 Pulse Ox 94 Oxygen Delivery Method Room Air Weight Weight: 180 lb Body Mass Index (BMI) 25.1 Physical Exam Const alert and oriented x3 General Appearance: cooperative HEENT normocephalic, head/scalp atraumatic and hearing grossly normal bilaterally Eyes PERRL, EOMs intact bilaterally and conjunctivae normal Neck no lymphadenopathy, supple and no JVD Resp Effort and Inspection: tachypneic and labored Auscultation: diminished lung sounds bilateral lower Cardio no murmurs Rate: tachycardic Rhythm: abnormal rhythm GI normal to inspection, nondistended, normoactive bowel sounds, soft to palpation, non-tender and non-distended Extremity Extremity Narrative: 2+ pitting edema bilaterally. Skin Skin Narrative: Patient lips and fingers appear cyanotic, although patient is satting at 94%. Neuro CN's II-XII intact bilaterally Psych affect normal Results Lab / Micro Data Result Diagrams: 04/16/21 16:25 04/16/21 16:25 Labs: Laboratory Results - last 24 hr 04/16/21 16:25: WBC 7.9, RBC 5.00, Hgb 15.1, Hct 47.3, MCV 94.6 H, MCH 30.2, MCHC 31.9 L, RDW Std Deviation 54.1 H, RDW Coeff of Anna 15.7 H, Plt Count 228, MPV 10.5, Immature Gran % (Auto) 0.500, Neut % (Auto) 79.7 H, Lymph % (Auto) 8.7 L, [place] % (Auto) 10.6 H, Eos % (Auto) 0.0, Baso % (Auto) 0.5, Absolute Neuts (auto) 6.3, Absolute Lymphs (auto) 0.69 L, Nucleated RBC % 0 04/16/21 16:25: Sodium 132 L, Potassium 4.8, Chloride 99, Carbon Dioxide 22.0, Anion Gap 11, BUN 25 H, Creatinine 1.17, Estim Creat Clear Calc 61.68, Est GFR (MDRD) Af Amer 79, Est GFR (MDRD) Non-Af 65, BUN/Creatinine Ratio 21.4 H, Glucose 75, Calcium 9.9, Troponin I High Sens 33 04/16/21 16:25: B-Natriuretic Peptide 2578.2 H Assessment & Plan Assessment/Plan (1) CHF (congestive heart failure): QUALIFIERS: Heart failure chronicity: acute on chronic Heart failure type: systolic Qualified Code(s): I50.23 - Acute on chronic systolic (congestive) heart failure (2) Acute exacerbation of CHF (congestive heart failure): (3) Atrial fibrillation, new onset: PLAN: Patient is a 71-year-old male who presents to the ED at [facility] on 04/16/2021 with a chief complaint of shortness of breath and weight gain. Patient will be admitted for management/evaluation of acute on chronic CHF exacerbation. 1) acute respiratory distress secondary to acute on chronic HFrEF exacerbation with ischemic cardiomyopathy Patient presents to the ED from Dr. Murray office with worsening shortness of breath and lower extremity edema over the past month. Patient has failed outpatient management. Patient's most up-to-date EF was 31%. Vital signs obtained in the ED were significant for tachycardia and tachypnea, although patient is satting 97% on room air. BNP is elevated at 2578. EKG obtained in the rewinder operator helper office demonstrated A. fib with RVR. Chest x-ray demonstrates a left-sided pleural effusion, unable to comment on heart size. Plan; admit to PCU for cardiac monitoring, continue to trend cardiac enzymes, fluid restriction to 1500 mL, daily weights, monitor I's and O's, initiate Lasix drip, transition patient to metoprolol, continue lisinopril, nitroglycerin ointment ordered, CBC and CMP in a.m., cardiology consult ordered, obtain echo in a.m., PT/OT eval ordered, case management consult ordered. 2) new onset A. fib with RVR Observed in Dr. Martinez's office. [id number] score is 4. Patient is rate controlled on carvedilol for heart failure, will be transition to metoprolol, per cardiology. 3)CAD s/p CABG & stent Patient underwent coronary angiography which revealed occlusion of the LAD and RCA, 30% stenosis in the circumflex, patent ORELLANA to LAD with a significant stenosis in the anastomosis that was treated with drug-eluting stent. Patient is on appropriate aspirin regimen at home, but not on stent due to spousal objections. 4) HTN Not within goal, on Coreg and lisinopril at home. Patient will be transition to metoprolol as above, continue lisinopril. DVT prophylaxis - Lovenox CODE STATUS: Full code Advance care planning: Patient does not have a healthcare power of trial attorney or living will. In the event that patient cannot make decisions for himself he would like his , Sofiya Hurtado, to make decisions for him. Patient seen by Garry Nunez PA-C, under the supervision of Dr. Peña. Documented by User: Dr. Samantha Peña DO 04/16/21 19:04 HPI - General General Date of Admission: 04/16/21 Date of Service: 04/16/21 Chief Complaint: Shortness of breath HPI Narrative This patient was seen in conjunction with IVETTE Love. The following is representation my independent history and physical examination. Please see below for addendum above. Mr. Hurtado is a 71-year-old white male who presented to the emergency department from his rewinder operator helper office secondary to dyspnea at rest and with exertion as well as weight gain. He denies any fever chills. He presented to his rewinder operator helper office today with worsening shortness of breath and lower extremity edema that had progressively getting worse over the last 6 to 8 weeks. He evidently had his Lasix dose increased as an outpatient to 40 mg p.o. twice daily for 5 days and then again for another 3 days but did not notice any significant improvement with this and actually felt weak and more symptomatic. Today during his rewinder operator helper visit he was found to have atrial fibrillation with RVR. While in his rewinder operator helper office he also had some nausea with one episode of emesis. He was directed to come to the emergency department for admission. His vital signs the emergency department show that he is afebrile however his heart rate was anywhere from 10 4-1 32, his blood pressures were stable, his respiratory rate was mildly elevated at 20-22 and his oxygen saturations were 94 on room air however when transferred to the floor he dropped to 87% and was placed on nasal cannula with improvement to 97% at 3 L. His CBC was overall unremarkable. His BMP shows mild hyponatremia at 132. His troponin was normal at 33. A BNP was obtained and found to be 2578.2. A chest x-ray was performed and the patient was found to have a large left pleural effusion. Per cardiology recommendations he was given 100 mg of metoprolol XL in the emergency department and his Coreg was discontinued. He was also given a therapeutic dose of Lovenox and will be admitted to PCU. [facility] Medical History Atherosclerosis of coronary artery of tetlin heart without angina pectoris Bilateral carotid bruits CHF (congestive heart failure) Dyslipidemia Essential hypertension Ischemic cardiomyopathy Murmur, cardiac Postoperative atrial fibrillation Stenosis of carotid artery Home Medications aspirin 81 mg tablet,delayed release 81 mg PO DAILY #90 tab 02/03/19 [Rx Last Taken 3 Days Ago ~04/13/21] carvedilol 6.25 mg tablet 6.25 mg PO BID #180 tab 02/15/21 [Rx Last Taken 3 Days Ago ~04/13/21] lisinopril 20 mg tablet 20 mg PO DAILY #90 tab 02/15/21 [Rx Last Taken 3 Days Ago ~04/13/21] furosemide 40 mg tablet 40 mg PO QAM #90 tab 03/01/21 [Rx Last Taken Unknown] Allergy/AdvReac Type Severity Reaction Status Date / Time No Known Allergies Allergy Unverified 04/16/21 16:03 Family History Father Alzheimer's dementia Mother Heart disease Brother , Age 40 Heart disease Surgical History History of coronary artery bypass graft History of coronary artery stent placement History of left heart catheterization (~09/04/09) History of right-sided carotid endarterectomy Implantable cardioverter-defibrillator (ICD) in situ (09/08/19) Social History Smoking Status: Former smoker quit date: 04/16/15 pack-years: 40 how long ago did patient quit smokin alcohol intake: current alcohol intake frequency: 0-2 drinks per day Alcohol type: wine details: Reports drinking about 4 glasses of wine per week. substance use type: does not use caffeine: Yes Type: coffee Number of servings: 6 ROS Constitutional Constitutional: Reports change in weight, fatigue and weakness; Denies anorexia, chills, fever(s), malaise, night sweats or other Eyes Eyes: Denies blurry vision, change in eye color, change in vision, discharge from eye(s), double vision, erythema, eye pain, loss of vision or other ENT HEENT: Denies abnormal hearing, dysphagia, ear pain, epistaxis, headache(s), hearing loss, nasal congestion, nasal discharge, post nasal drip, sinus pressure, sore throat or other Cardiovascular Cardiovascular: Reports dyspnea on exertion, edema and rapid heart rate; Denies chest pain, claudication, lightheadedness, orthopnea, palpitations, paroxysmal nocturnal dyspnea, syncope or other Respiratory/Chest Respiratory/Chest: Reports dyspnea, shortness of breath at rest and shortness of breath with exertion; Denies cough, excessive phlegm production, hemoptysis, productive cough, wheezing or other Gastrointestinal Gastrointestinal: Reports nausea and vomiting; Denies abdominal pain, coffee ground emesis, constipation, diarrhea, dyspepsia, hematemesis, hematochezia, loose stools, melena or other Genitourinary Genitourinary: Denies burning urination, difficulty urinating, dysuria, hematuria, nocturia, urinary frequency, urinary hesitancy, urinary incontinence, urinary urgency or other Musculoskeletal Musculoskeletal: Denies arthralgias, back pain, joint pain, joint stiffness, joint swelling, myalgias, neck pain or other Neurologic Neurologic: Denies abnormal gait, abnormal speech, confusion, disequilibrium, dizziness, focal weakness, headache(s), numbness, paresthesias, seizure-like activity, seizures, syncope, tingling, tremor(s) or other Psychiatric Psychiatric: Denies anxiety, depression, homicidal ideation, suicidal ideation or other Endocrine Endocrinology: Denies change in body appearance, cold intolerance, excessive sweating, heat intolerance, polydipsia, polyuria or other Hematologic/Lymphatic Hematologic/Lymphatic: Denies anemia, easy bleeding, easy bruising, lymphadenopathy or other Allergic/Immunologic Allergic/Immunologic: Denies rhinitis, hives, eczemia, asthma or other Physical Exam Const alert, oriented x3, no apparent distress and average body habitus Constitutional Narrative: Older white male sitting up in bed, appears older than stated age, mild dyspnea with conversation, nursing at bedside General Appearance: cooperative HEENT normocephalic, head/scalp atraumatic, hearing grossly normal bilaterally and moist oral mucous membranes HEENT Narrative: Mallampati is 2, no thrush dentition is fair Eyes PERRL, EOMs intact bilaterally and conjunctivae normal Eyes Narrative: No scleral icterus Neck no lymphadenopathy, supple and no carotid bruits Neck Narrative: Right neck with scar consistent with carotid endarterectomy, hepatojugular reflux, JVD is present, trachea midline, no thyroid enlargement Resp no retractions, no use of accessory muscles and clear to auscultation bilaterally Resp Narrative: Crackles bilateral bases, mild dyspnea with conversation Auscultation: crackles; Negative for rales, rhonchi or wheezes Cardio S1 normal heart sound, S2 normal heart sound, no rub, no gallops and no clicks; Negative for regular rate, regular rhythm or no JVD Cardio Narrative: Mild tachycardia with irregularly irregular rhythm, 3 out of 6 systolic murmur noticed most significant at the left lower sternal border GI normal to inspection, nondistended, normoactive bowel sounds, soft to palpation, non-tender and non-distended Extremity Extremity Narrative: 2+ bilateral lower extremity pitting edema, mild cyanosis of fingertips and lips, no clubbing, pedal pulses are 1+ Skin skin turgor normal, no jaundice, no petechiae and no mottling Skin Narrative: Cracks in the skin at bilateral hands at knuckles-no signs of infection, no drainage Neuro oriented x3, CN's II-XII intact bilaterally, moves all extremities and no focal motor deficits Neuro Narrative: Generalized weakness Sensorium / Orientation: awake and alert Speech: speech normal Psych affect normal Results Lab / Micro Data Result Diagrams: 04/16/21 16:25 04/16/21 16:25 Assessment & Plan Assessment/Plan (1) Acute exacerbation of CHF (congestive heart failure): (2) Atrial fibrillation, new onset: (3) Acute respiratory failure with hypoxia: (4) Pleural effusion on left: (5) Hyponatremia: PLAN: Assessment: Acute hypoxic respiratory failure secondary to acute decompensated on chronic systolic heart failure New onset atrial fibrillation Hyponatremia Cardiac murmur Edema Ischemic cardiomyopathy CAD status post CABG and PCI Carotid disease status post right carotid endarterectomy Hypertension History of tobacco abuse Regular alcohol use Plan: -Admit to PCU -Lasix drip -We will switch Coreg 6.25 mg twice daily to metoprolol 100 mg daily per cardiology recommendations -Cycle cardiac enzymes -Repeat echocardiogram -MUGA was obtained approximately 1 year ago and showed an EF of 31% -Nitropaste for afterload reduction -Therapeutic Lovenox twice daily -May need [facility] -Consult cardiology -Place Alarcon -Accurate I's and O's -Fluid restriction of 1500 cc daily -sodium restricted diet Charges/Coding Visit Charges Inpatient E&M: 15753 Init Hosp L3
--- NOTE | 2021-04-16 18:23 | ECHOD_ITS ---
Reason For Study: CHF Procedure This was a 2D Doppler, Color Flow transthoracic echocardiogram. The study was technically difficult. Definity deferred due to elevated PAP. Exam performed portable in patient room. Dr. Martinez notified of decreased EF approx 11;45 am. Left Ventricle The estimated ejection fraction is 10-15 %. There is evidence of diastolic dysfunction. There is severe global hypokinesis of the left ventricle. Right Ventricle Normal RV size. ICD or pacer leads identified within the right ventricle. Normal systolic function. Atria The left atrium is severely enlarged. Normal right atrium. No doppler evidence for ASD. Mitral Valve There is no mitral valve stenosis. Mild (1+) mitral valve insufficiency. Tricuspid Valve There is no tricuspid stenosis. Trivial tricuspid valve insufficiency. Pulmonary artery systolic pressure is 60-65 mmHg. Aortic Valve Severe diffuse aortic valve thickening. Mild to moderate aortic stenosis. No aortic valve insufficiency. Pulmonic Valve There is no pulmonic valvular stenosis. No pulmonic valve insufficiency. Great Vessels Normal aortic root. The inferior vena cava is dilated. Pericardium/Pleural No pericardial effusion. Large left pleural effusion. MMode/2D Measurements & Calculations LVIDd: 5.7 cm IVSd: 1.2 cm Ao root diam: 3.5 cm LVIDs: 5.4 cm LVPWd: 0.83 cm RVDd: 3.9 cm FS: 4.9 % LAV(MOD-bp): 114.4 ml LA A4 area: 29.5 cm2 LA dimension(2D): 5.8 cm LAV(MOD-bp) Indexed: 56.7 ml/m2 LAV(MOD-sp2): 115.9 ml LAV(MOD-sp4): 108.5 ml RA A4 area: 23.2 cm2 Doppler Measurements & Calculations MV E max keily: 103.6 cm/sec Ao V2 max: 177.7 cm/sec LV V1 max: 88.0 cm/sec Ao max P.6 mmHg LV V1 max P.1 mmHg PA V2 max: 86.2 cm/sec TR max keily: 365.1 cm/sec TR max P.3 mmHg ECHO/Echo Complete Interpretation Summary The estimated ejection fraction is 10-15 %. There is evidence of diastolic dysfunction. There is severe global hypokinesis of the left ventricle. The left atrium is severely enlarged. Mild (1+) mitral valve insufficiency. Pulmonary artery systolic pressure is 60-65 mmHg. Mild to moderate aortic stenosis. Ordering Physician: Samantha Peña Referring Physician: IMAN PCP Performed By: Parvin Germain, DAVIDSON, RVT
[2021-04-16 19:40] LABS: Troponin-I HS 33 pg/mL (3.0-78.0)
[2021-04-16] MEDS: Furosemide 500 MG in Empty Viaflex 50 mL 1 EACH CONT INF (19:47)
[2021-04-16] MEDS: Atorvastatin Calcium 80 MG Tablet PO (21:18)
[2021-04-17] VITALS (8 sets, daily range): BP systolic 94–124; BP diastolic 68–96; PULSE 67–80; RESP 16–18; TEMP 36.4–36.7; O2SAT 93–99
[2021-04-17 00:04] LABS: Troponin-I HS 30 pg/mL (3.0-78.0)
[2021-04-17] MEDS: Enoxaparin 80 MG/0.8 ML Syringe SC ×2 (05:12→17:32)
[2021-04-17 05:23] LABS: Absolute Lymphocyte Count 0.93 X10^3/uL (0.83-4.51); Absolute Neutrophil Count 6.5 X10^3/uL (2.0-7.7); Basophil# 0.02 X10^3/uL; Basophil% 0.2 % (0-1); Hemoglobin 14.2 g/dL (13.0-16.5); Lymphocyte # 0.93 X10^3/ul (0.83-4.51); Mean Corpuscular Hgb 30.9 pg (27.0-32.0); Mean Corpuscular Volume 93.5 fL (80-94); Mean Platelet Vol. 10.2 fl (6.2-12.0); Monocyte# 1.01 X10^3/uL; Monocyte% 11.9 % (0-10); NRBC Flagged by Analyzer 0 % (0-5); Neutrophil # 6.47 X10^3/uL (2.7-7.7); Neutrophil % 76.5 % (47-70); Platelet Count 192 K/mm3 (150-450); RBC Distribution Width CV 15.8 % (11.6-14.6); RBC Distribution Width SD 53.5 fl (35.1-43.9); White Blood Count 8.5 K/mm3 (4.4-11.0)
[2021-04-17 05:53] LABS: AST(SGOT) 245 U/L (15-37); Alanine Aminotransfer ALT/SGPT 169 U/L (16-61); Albumin, Serum 3.1 g/dL (3.2-5.0); Alkaline Phosphatase 125 U/L (45-117); Anion Gap 13 (5-15); BUN 27 mg/dL (7-18); BUN/Creat Ratio 26.2 RATIO (10-20); Calcium,Total 8.6 mg/dL (8.5-10.1); Chloride 98 mmol/L (98-107); Cholesterol 109 mg/dL (200); Creatinine, Serum 1.03 mg/dL (0.70-1.30); EST Glomerular Filtration Rate 76 mL/min (>60); Est Glom Filt Rate - Afr Amer 92 mL/min (>60); Estimated Creatinine Clearance 65.78 ml/min; Globulin 3.2 g/dL (2.2-4.2); Glucose 90 mg/dL (74-106); High Density Lipoprotein 36 mg/dL; Magnesium 2.2 mg/dL (1.6-2.6); Phosphorus 4.2 mg/dL (2.5-4.9); Potassium 3.9 mmol/L (3.5-5.1); Protein, Total 6.3 g/dL (6.4-8.2); Sodium Level 133 mmol/L (136-145); Thyroid Stim Hormone (TSH) 8.39 uIU/mL (0.358-3.74); Triglycerides 59 mg/dL; Very Low Density Lipoprotein 12 mg/dL (5-40)
[2021-04-17] MEDS: Aspirin E.C. 81 MG Tablet PO (08:35)
--- NOTE | 2021-04-17 11:14 | PCM.PN.HOSP ---
Documented by User: Garry STEELE 04/17/21 11:26 Subjective Subjective Patient is a 71-year-old male who is comfortably resting in bed, alert and orient x3. Patient reports significant improvement in his shortness of breath and swelling from admission. Denies development of any new symptoms overnight. Does not appear in acute distress. Objective Data Objective Data Vital Signs: Vital Signs Temp Pulse Resp BP Pulse Ox 97.7 F L 75 18 94/68 99 04/17/21 08:33 04/17/21 08:33 04/17/21 08:33 04/17/21 08:33 04/17/21 08:33 Oxygen Flow Rate (L/min) 3 Oxygen Delivery Method Nasal Cannula Weight: 181 lb 3.52 oz Body Mass Index (BMI) 27.5 Intake & Output: Intake and Output for Last 24 Hours 04/15/21 04/16/21 04/17/21 23:59 23:59 23:59 Intake Total 480 / 480 Output Total 3175 / 3175 Balance -2695 / -2695 Lab / Micro Data Result Diagrams: 04/17/21 04:57 04/17/21 04:57 Labs: Laboratory Results - last 24 hr 04/16/21 16:25: WBC 7.9, RBC 5.00, Hgb 15.1, Hct 47.3, MCV 94.6 H, MCH 30.2, MCHC 31.9 L, RDW Std Deviation 54.1 H, RDW Coeff of Anna 15.7 H, Plt Count 228, MPV 10.5, Immature Gran % (Auto) 0.500, Neut % (Auto) 79.7 H, Lymph % (Auto) 8.7 L, [place] % (Auto) 10.6 H, Eos % (Auto) 0.0, Baso % (Auto) 0.5, Absolute Neuts (auto) 6.3, Absolute Lymphs (auto) 0.69 L, Nucleated RBC % 0 04/16/21 16:25: Sodium 132 L, Potassium 4.8, Chloride 99, Carbon Dioxide 22.0, Anion Gap 11, BUN 25 H, Creatinine 1.17, Estim Creat Clear Calc 61.68, Est GFR (MDRD) Af Amer 79, Est GFR (MDRD) Non-Af 65, BUN/Creatinine Ratio 21.4 H, Glucose 75, Calcium 9.9, Troponin I High Sens 33 04/16/21 16:25: B-Natriuretic Peptide 2578.2 H 04/16/21 19:05: Troponin I High Sens 33 04/16/21 23:20: Troponin I High Sens 30 04/17/21 04:57: WBC 8.5, RBC 4.60, Hgb 14.2, Hct 43.0, MCV 93.5, MCH 30.9, MCHC 33.0, RDW Std Deviation 53.5 H, RDW Coeff of Anna 15.8 H, Plt Count 192, MPV 10.2, Immature Gran % (Auto) 0.400, Neut % (Auto) 76.5 H, Lymph % (Auto) 11.0 L, [place] % (Auto) 11.9 H, Eos % (Auto) 0.0, Baso % (Auto) 0.2, Absolute Neuts (auto) 6.5, Absolute Lymphs (auto) 0.93, Nucleated RBC % 0 04/17/21 04:57: Sodium 133 L, Potassium 3.9, Chloride 98, Carbon Dioxide 22.0, Anion Gap 13, BUN 27 H, Creatinine 1.03, Estim Creat Clear Calc 65.78, Est GFR (MDRD) Af Amer 92, Est GFR (MDRD) Non-Af 76, BUN/Creatinine Ratio 26.2 H, Glucose 90, Calcium 8.6, Phosphorus 4.2, Magnesium 2.2, Total Bilirubin 4.90 H, AST 245 H, ALT 169 H, Alkaline Phosphatase 125 H, Total Protein 6.3 L, Albumin 3.1 L, Globulin 3.2, Albumin/Globulin Ratio 1.0, Triglycerides 59, Cholesterol 109, LDL Cholesterol 61, VLDL Cholesterol 12, HDL Cholesterol 36 L, TSH 8.39 H Radiography Diagnostic Testing: Radiology Impression Chest X-Ray 04/16/21 17:05 IMPRESSION: There are bilateral pleural effusions. There are bilateral infiltrates. Electronically Signed: Toribio Little MD at 17:25 EST , Service support , Physical Exam Const alert, oriented x3 and no apparent distress HEENT head/scalp atraumatic and moist oral mucous membranes Head and Scalp: normocephalic Eyes PERRL, EOMs intact bilaterally and conjunctivae normal Neck no lymphadenopathy, supple and no JVD Resp normal respiratory effort, no retractions, no use of accessory muscles and clear to auscultation bilaterally Resp Narrative: Currently satting 3 L via nasal cannula. Cardio regular rate, regular rhythm, no murmurs and no JVD GI normal to inspection, nondistended, normoactive bowel sounds, soft to palpation and non-tender Extremity normal to inspection, full ROM and no clubbing, cyanosis or edema Skin no rashes or lesions noted, no wounds, skin turgor normal and no jaundice Neuro CN's II-XII intact bilaterally Psych affect normal Assessment & Plan Assessment/Plan (1) Pleural effusion: (2) Hyponatremia: (3) Acute respiratory failure with hypoxia: (4) Atrial fibrillation, new onset: (5) Acute exacerbation of CHF (congestive heart failure): PLAN: Day 1 Discharge planning: To be determined. 1) acute respiratory distress secondary to acute on chronic HFrEF exacerbation with ischemic cardiomyopathy Patient reports significant improvement in his shortness of breath and swelling from admission. Currently satting 97% on 3 L via nasal cannula. MUGA scan from 2019 showed an EF of 31%. High-sensitivity troponins not elevated throughout cycle. Creatinine within normal limits. Plan; remain admitted overnight, continue Lasix drip, continue monitor I's and O's,continue monitor daily weights, continue fluid restriction, echo pending, cardiology following. 2) new onset A. fib with RVR Observed on admission, rate is currently controlled. [id number] score is 4. Patient is rate controlled on carvedilol for heart failure, transition to metoprolol on admission, per cardiology. 3) pleural effusion Bilateral pleural effusions evident on chest x-ray, continue to monitor. 4)CAD s/p CABG & stent Patient underwent coronary angiography which revealed occlusion of the LAD and RCA, 30% stenosis in the circumflex, patent ORELLANA to LAD with a significant stenosis in the anastomosis that was treated with drug-eluting stent. Patient is on appropriate aspirin regimen at home, but not on stent due to spousal objections. Patient with implantable cardioverter-defibrillator. 5) HTN Not within goal, on Coreg and lisinopril at home. Patient will be transition to metoprolol as above, continue lisinopril. DVT prophylaxis - Lovenox Patient seen by Garry Nunez PA-C, under the supervision of Dr. Hilario. Documented by User: Dr. Jasmina Hilario MD 04/17/21 15:40 Objective Data Lab / Micro Data Result Diagrams: 04/17/21 04:57 04/17/21 04:57 Charges/Coding Addendum Addendum: Patient seen by Garry Nunez PA-C under my supervision Patient seen and examined. He was admitted on the recommendation of his automatic steel tie adjuster on account of shortness of breath and excessive weight gain. He is being managed for acute on chronic heart failure. Was also noted to be in A. fib with RVR chest x-ray also showed left-sided pleural effusion. He is on Lasix drip. Patient states he is feeling much better. His shortness of breath is improving on the Lasix and he feels the swelling is also going down. Review of systems otherwise negative. O/E: Const alert, oriented x3 and no apparent distress HEENT head/scalp atraumatic and moist oral mucous membranes Head and Scalp: normocephalic Eyes PERRL, EOMs intact bilaterally and conjunctivae normal Neck no lymphadenopathy, supple and no JVD Resp diminished breath sounds bibasally, no wheezes, no crackles. on 3L of oxygen by nasal canula Cardio regular rate, regular rhythm, no murmurs and no JVD GI normal to inspection, nondistended, normoactive bowel sounds, soft to palpation and non-tender Extremity normal to inspection, full ROM and no clubbing, cyanosis or edema Skin no rashes or lesions noted, no wounds, skin turgor normal and no jaundice Neuro CN's II-XII intact bilaterally Psych affect normal Plan is to continue with Lasix drip. Cardiology on board. Titrate oxygen to maintain saturation above 90%. On p.o. metoprolol for A. fib. 2D echo pending. Fluid restriction 1500 cc daily. Cardiology on board. Will monitor pleural effusions, if shortness of breath does not improve he will benefit from thoracentesis. On Lovenox for DVT prophylaxis. Rest as per Garry Nunez PA-C's notes which I reviewed and endorsed. Visit Charges Inpatient E&M: 33840 Subs Hosp L3
[2021-04-17] MEDS: Acetaminophen 325 MG Tablet 650 MG PO (11:24)
--- NOTE | 2021-04-17 12:06 | CHAPLAIN ---
Type of Pastoral Visit _x__ Initial Visit ___ Follow-up Visit ___ On-call Visit ___ General Patient Visit ___ Spiritual Assessment ___ Family Conference ___ Bereavement ___ Rapid Response ___ Code Blue ___ Other (describe below) Pastoral Care Referral From _x__ Patient ___ Family ___ Nurse ___ Physician ___ Shaper And Presser ___ Lumber Grader ___ Other (describe below) Sacrament/Intervention _x__ Active listening ___ Anointing ___ Methodist ___ Bereavement ___ Communion ___ [place] exploration ___ ___ Life review ___ Prayer ___ Reconciliation ___ Sacrament of Sick ___ Supportive presence ___ Wedding ___ Other (describe below) Pastoral Comments patient is resting and appears comfortable; pt states that he will have some issues checked and that he is fine; no needs noted
--- NOTE | 2021-04-17 12:18 | CASEMGMT ---
RN CM Assessment Introduced role of RN CM to patient.? Patient is alert, oriented and able?to participate in RN CM Assessment. ?Care providers, pharmacy, and demographics verified. Admit Dx: Acute Decompensated SHF/Afib w/RVR. IP on 04.16.21. Re-Admit: No Barriers/Issues: None PCP: None. Seen by a provider at [facility] in [facility]. Specialists: Cardio- Juan Preferred Pharmacy: [facility] Insurance: [facility] only Rx Benefit:?Yes LNOK: Sofiya Cervantes LW/HPOA: None. Patient would like to complete ADs on this admission. line assembly utility worker Katelyn informed. Living Arrangements:?Lives with in a 2SH, bedroom on 2nd fl with 13 steps. 3 steps to enter home. ADL?s: Independent with ambulation and ADLs Transportation: Patient drives, drove self to hospital and plans to drive at DC if able. DME: None HHC: None SNF: None Goal: Home. If Home O2 needed- In network list provided and preference 1. [employer] 2. [employer]. Pending PT/OT eval- if additional Tx needed- Okay with Outpatient near him. DC PLAN: Home and RNCM to f/u on Oxygen and Therapy for needs.SHARAD Black
--- NOTE | 2021-04-17 13:54 | CON.PCM.CA_ITS ---
Assessment & Plan Assessment/Plan (1) Acute exacerbation of CHF (congestive heart failure): QUALIFIERS: Heart failure type: systolic Qualified Code(s): I50.23 - Acute on chronic systolic (congestive) heart failure PLAN: Improving. Continue IV Lasix at this time. Possible coronary angiogram tomorrow if his creatinine remains stable. (2) Atrial fibrillation, new onset: PLAN: Responded well to metoprolol. After his coronary angiogram he will need anticoagulation. (3) History of coronary artery stent placement: PLAN: Continue present management (4) History of coronary artery bypass graft: PLAN: Continue present management (5) Atherosclerosis of coronary artery of [place] heart without angina pectoris: QUALIFIERS: Coronary Disease-Associated Artery/Lesion type: [place] artery Qualified Code(s): I25.10 - Atherosclerotic heart disease of [place] coronary artery without angina pectoris PLAN: Coronary angiogram likely tomorrow as this could be an anginal equivalent. (6) Ischemic cardiomyopathy: (7) Implantable cardioverter-defibrillator (ICD) in situ: HPI Consult Data Date of Consult: 04/17/21 HPI Narrative HPI Narrative: NICHOLE HURTADO, is a 71 M who presents with shortness of breath and leg swelling. Please refer to our office note from 04/16/2021 for full details. In brief Mr. Hurtado is a 71-year-old gentleman with history of coronary artery disease status post single-vessel CABG in 2009 (minimally invasive ORELLANA to LAD), coronary angiogram in 2019 revealing occluded RCA, patent circumflex and significant stenosis in the ORELLANA to LAD. The stenosis in the ORELLANA to LAD was treated with a drug-eluting stent. Prior to this patient had presented with CHF and drop in EF. His EF improved to 31% from 17% prior to PCI. This time he presents with decompensated CHF. He was also found to have A. fib with RVR which is new for him. Patient did have postop A. fib after his bypass surgery. Patient was admitted to the PCU. His Coreg was switched to metoprolol and he was started on IV Lasix. He has noticed significant improvement in his symptoms. Review of systems: All systems reviewed. All system negative except that in HPI [facility] Medical History Atherosclerosis of coronary artery of [place] heart without angina pectoris Bilateral carotid bruits CHF (congestive heart failure) Dyslipidemia Essential hypertension Ischemic cardiomyopathy Murmur, cardiac Postoperative atrial fibrillation Stenosis of carotid artery Home Medications aspirin 81 mg tablet,delayed release 81 mg PO DAILY #90 tab 02/03/19 [Rx Last Taken 3 Days Ago ~04/13/21] carvedilol 6.25 mg tablet 6.25 mg PO BID #180 tab 02/15/21 [Rx Last Taken 3 Days Ago ~04/13/21] lisinopril 20 mg tablet 20 mg PO DAILY #90 tab 02/15/21 [Rx Last Taken 3 Days Ago ~04/13/21] furosemide 40 mg tablet 40 mg PO QAM #90 tab 03/01/21 [Rx Last Taken Unknown] Allergy/AdvReac Type Severity Reaction Status Date / Time No Known Allergies Allergy Unverified 04/16/21 16:03 Family History Father Alzheimer's dementia Mother Heart disease Brother , Age 40 Heart disease Surgical History History of coronary artery bypass graft History of coronary artery stent placement History of left heart catheterization (~09/04/09) History of right-sided carotid endarterectomy Implantable cardioverter-defibrillator (ICD) in situ (09/08/19) Social History Smoking Status: Former smoker quit date: 04/16/15 pack-years: 40 how long ago did patient quit smokin alcohol intake: current alcohol intake frequency: 0-2 drinks per day Alcohol type: wine details: Reports drinking about 4 glasses of wine per week. substance use type: does not use caffeine: Yes Type: coffee Number of servings: 6 Physical Exam Const alert and oriented x3 Orientation / Consciousness: awake HEENT normocephalic Eyes no scleral icterus Resp normal respiratory effort Auscultation: crackles bilateral lower and diminished lung sounds left lower Cardio Cardio Narrative: Irregular rhythm Extremity General Extremity: edema bilateral lower extremity Details: moderate Skin no rashes or lesions noted Neuro oriented x3 Psych mental status grossly normal Risk Stratification Risk Stratification Applicable: No Objective Data Vital Signs: Vital Signs Temp Pulse Resp BP Pulse Ox 97.7 F L 75 18 94/68 99 04/17/21 08:33 04/17/21 08:33 04/17/21 08:33 04/17/21 08:33 04/17/21 08:33 Oxygen Flow Rate (L/min) 2 Oxygen Delivery Method Nasal Cannula Weight: 181 lb 3.52 oz Body Mass Index (BMI) 27.5 Intake & Output: Intake and Output for Last 24 Hours 04/15/21 04/16/21 04/17/21 23:59 23:59 23:59 Intake Total 480 / 480 Output Total 3175 / 3175 Balance -2695 / -2695 Lab / Micro Data Result Diagrams: 04/17/21 04:57 04/17/21 04:57 Labs: Laboratory Results - last 24 hr 04/16/21 16:25: WBC 7.9, RBC 5.00, Hgb 15.1, Hct 47.3, MCV 94.6 H, MCH 30.2, MCHC 31.9 L, RDW Std Deviation 54.1 H, RDW Coeff of [place] 15.7 H, Plt Count 228, MPV 10.5, Immature Gran % (Auto) 0.500, Neut % (Auto) 79.7 H, Lymph % (Auto) 8.7 L, [place] % (Auto) 10.6 H, Eos % (Auto) 0.0, Baso % (Auto) 0.5, Absolute Neuts (auto) 6.3, Absolute Lymphs (auto) 0.69 L, Nucleated RBC % 0 04/16/21 16:25: Sodium 132 L, Potassium 4.8, Chloride 99, Carbon Dioxide 22.0, Anion Gap 11, BUN 25 H, Creatinine 1.17, Estim Creat Clear Calc 61.68, Est GFR (MDRD) Af Amer 79, Est GFR (MDRD) Non-Af 65, BUN/Creatinine Ratio 21.4 H, Glucose 75, Calcium 9.9, Troponin I High Sens 33 04/16/21 16:25: B-Natriuretic Peptide 2578.2 H 04/16/21 19:05: Troponin I High Sens 33 04/16/21 23:20: Troponin I High Sens 30 04/17/21 04:57: WBC 8.5, RBC 4.60, Hgb 14.2, Hct 43.0, MCV 93.5, MCH 30.9, MCHC 33.0, RDW Std Deviation 53.5 H, RDW Coeff of [place] 15.8 H, Plt Count 192, MPV 10.2, Immature Gran % (Auto) 0.400, Neut % (Auto) 76.5 H, Lymph % (Auto) 11.0 L, [place] % (Auto) 11.9 H, Eos % (Auto) 0.0, Baso % (Auto) 0.2, Absolute Neuts (auto) 6.5, Absolute Lymphs (auto) 0.93, Nucleated RBC % 0 04/17/21 04:57: Sodium 133 L, Potassium 3.9, Chloride 98, Carbon Dioxide 22.0, Anion Gap 13, BUN 27 H, Creatinine 1.03, Estim Creat Clear Calc 65.78, Est GFR (MDRD) Af Amer 92, Est GFR (MDRD) Non-Af 76, BUN/Creatinine Ratio 26.2 H, Glucose 90, Calcium 8.6, Phosphorus 4.2, Magnesium 2.2, Total Bilirubin 4.90 H, AST 245 H, ALT 169 H, Alkaline Phosphatase 125 H, Total Protein 6.3 L, Albumin 3.1 L, Globulin 3.2, Albumin/Globulin Ratio 1.0, Triglycerides 59, Cholesterol 109, LDL Cholesterol 61, VLDL Cholesterol 12, HDL Cholesterol 36 L, TSH 8.39 H Cardiology Labs/Tests 04/16/21 16:25: WBC 7.9, RBC 5.00, Hgb 15.1, Hct 47.3, MCV 94.6 H, MCH 30.2, MCHC 31.9 L, Plt Count 228, MPV 10.5, Immature Gran % (Auto) 0.500, Neut % (Auto) 79.7 H, Lymph % (Auto) 8.7 L, [place] % (Auto) 10.6 H, Eos % (Auto) 0.0, Baso % (Auto) 0.5, Absolute Neuts (auto) 6.3, Nucleated RBC % 0 04/16/21 16:25: Sodium 132 L, Potassium 4.8, Chloride 99, Carbon Dioxide 22.0, Anion Gap 11, BUN 25 H, Creatinine 1.17, Est GFR (MDRD) Af Amer 79, Est GFR (MDRD) Non-Af 65, BUN/Creatinine Ratio 21.4 H, Glucose 75, Calcium 9.9 04/16/21 16:25: B-Natriuretic Peptide 2578.2 H 04/17/21 04:57: WBC 8.5, RBC 4.60, Hgb 14.2, Hct 43.0, MCV 93.5, MCH 30.9, MCHC 33.0, Plt Count 192, MPV 10.2, Immature Gran % (Auto) 0.400, Neut % (Auto) 76.5 H, Lymph % (Auto) 11.0 L, [place] % (Auto) 11.9 H, Eos % (Auto) 0.0, Baso % (Auto) 0.2, Absolute Neuts (auto) 6.5, Nucleated RBC % 0 04/17/21 04:57: Sodium 133 L, Potassium 3.9, Chloride 98, Carbon Dioxide 22.0, Anion Gap 13, BUN 27 H, Creatinine 1.03, Est GFR (MDRD) Af Amer 92, Est GFR (MDRD) Non-Af 76, BUN/Creatinine Ratio 26.2 H, Glucose 90, Calcium 8.6, Phosphorus 4.2, Magnesium 2.2, Total Bilirubin 4.90 H, Triglycerides 59, Cholesterol 109, LDL Cholesterol 61, VLDL Cholesterol 12, HDL Cholesterol 36 L Rhythm: EKG: ECHO: Stress Test: Cardiac Cath: PCI: CT Surgery: Holter monitor: EPS: PPM: CXR: Chest CT Scan: Radiography Diagnostic Testing: Radiology Impression Chest X-Ray 04/16/21 17:05 IMPRESSION: There are bilateral pleural effusions. There are bilateral infiltrates. Electronically Signed: Toribio Little MD at 17:25 EST , Service support , Echocardiogram 04/16/21 18:23 Interpretation Summary The estimated ejection fraction is 10-15 %. There is evidence of diastolic dysfunction. There is severe global hypokinesis of the left ventricle. The left atrium is severely enlarged. Mild (1+) mitral valve insufficiency. Pulmonary artery systolic pressure is 60-65 mmHg. Mild to moderate aortic stenosis. Ordering Physician: Samantha Peña Referring Physician: IMAN PCP Performed By: Parvin Germain RDCS, RVT
--- NOTE | 2021-04-17 14:16 | CASEMGMT ---
Social Work SW met w/pt in room, pt resting in bed. SW inquired if he would like to complete LW/POA, he would, but in a half hour. SW explained will come back today as time allows, otherwise it will need to be tomorrow. WAYNE Gabriel
--- NOTE | 2021-04-17 14:33 | CASEMGMT ---
According to the [facility] website, the following are in-network tertiary facilities: [facility], [facility], [facility], ,[facility], [facility], [facility], [facility], and . Swapna DUBOSE CM
[2021-04-17] MEDS: Atorvastatin Calcium 80 MG Tablet PO (21:26)
[2021-04-18] VITALS (12 sets, daily range): BP systolic 94–128; BP diastolic 62–78; PULSE 63–89; RESP 12–18; TEMP 36.3–36.8; O2SAT 89–97
[2021-04-18] MEDS: 0.9% Saline Lock 10 ML Syringe IV ×2 (03:56→09:00)
--- NOTE | 2021-04-18 05:00 | EKG12_ITS ---
Test Reason : AM EKG Blood Pressure : / mmHG Vent. Rate : 082 BPM Atrial Rate : 077 BPM P-R Int : 000 ms QRS Dur : 132 ms QT Int : 468 ms P-R-T Axes : 000 -19 158 degrees QTc Int : 546 ms Atrial fibrillation Non-specific intra-ventricular conduction block Abnormal ECG When compared with ECG of 16-APR-2021 16:12, Current undetermined rhythm precludes rhythm comparison, needs review QRS duration has increased QT has lengthened Confirmed by YENNIFER FULLER, FARIBA ([id number]), editor index KAREEM BOYD ([id number]) on 04/19/2021 12:50:07 PM Referred By: VICTORINA Confirmed By:JACQUELINE DE OLIVEIRA MD
--- NOTE | 2021-04-18 05:55 | RAD_ITS ---
STUDY: X-RAY CHEST REASON FOR EXAM: Male, 71 years old. AFIB, ACUTE DECOMPENSATED SYSTOLIC HEART FAILURE. PRE-HEART CATH TECHNIQUE: Single AP portable view of the chest. COMPARISON: Apr 16 2021 5:00pm FINDINGS: Stable cardiac conduction device. EKG leads project over the chest. Stable left larger than right pleural effusion with underyling atelectasis or infiltrates. No pneumothorax. There is mild cardiac enlargement. Normal mediastinum and hardik. Normal visualized pulmonary arteries. Normal visualized aortic arch and descending thoracic aorta. No acute bony process. There is no demonstrated abnormality of the visualized soft tissue structures of the upper abdomen. RAD/Chest PA and Lateral IMPRESSION: Stable. Electronically Signed: Ronnie Giron MD ([place]) at 7:50 EST , Service support ,
[2021-04-18] MEDS: Aspirin E.C. 81 MG Tablet PO (06:39)
[2021-04-18] MEDS: Lisinopril 20 MG Tablet PO (06:39)
[2021-04-18] MEDS: Metoprolol(XL)Succ 100 MG Tablet PO (06:40)
[2021-04-18 06:59] LABS: Absolute Lymphocyte Count 0.61 X10^3/uL (0.83-4.51); Absolute Neutrophil Count 6.6 X10^3/uL (2.0-7.7); Basophil# 0.01 X10^3/uL; Basophil% 0.1 % (0-1); Eosinophil# 0.08 X10^3/uL; Hemoglobin 13.7 g/dL (13.0-16.5); Lymphocyte # 0.61 X10^3/ul (0.83-4.51); Lymphocyte % 7.4 % (19-41); Mean Corp Hgb Conc 32.6 g/dL (32-36); Mean Corpuscular Hgb 29.8 pg (27.0-32.0); Mean Corpuscular Volume 91.3 fL (80-94); Mean Platelet Vol. 10.2 fl (6.2-12.0); Monocyte# 0.94 X10^3/uL; Monocyte% 11.4 % (0-10); NRBC Flagged by Analyzer 0 % (0-5); Neutrophil # 6.59 X10^3/uL (2.7-7.7); Neutrophil % 79.7 % (47-70); Platelet Count 214 K/mm3 (150-450); RBC Distribution Width CV 15.4 % (11.6-14.6); RBC Distribution Width SD 50.9 fl (35.1-43.9); White Blood Count 8.3 K/mm3 (4.4-11.0)
[2021-04-18 07:18] LABS: Magnesium 1.8 mg/dL (1.6-2.6)
[2021-04-18 07:21] LABS: Anion Gap 13 (5-15); BUN 26 mg/dL (7-18); BUN/Creat Ratio 29.6 RATIO (10-20); Calcium,Total 8.4 mg/dL (8.5-10.1); Chloride 92 mmol/L (98-107); Creatinine, Serum 0.88 mg/dL (0.70-1.30); EST Glomerular Filtration Rate 91 mL/min (>60); Est Glom Filt Rate - Afr Amer 110 mL/min (>60); Estimated Creatinine Clearance 76.99 ml/min; Glucose 106 mg/dL (74-106); Potassium 2.4 mmol/L (3.5-5.1); Sodium Level 136 mmol/L (136-145)
[2021-04-18] MEDS: Potassium Chloride Oral Tablet 20 MEQ 40 MEQ PO ×3 (08:49→20:10)
[2021-04-18] MEDS: Potassium Chloride 10mEq/100mL 10 MEQ/100 ML IV.SOLN. 100 MEQ IV BOLUS ×4 (08:50→12:44)
[2021-04-18] MEDS: Furosemide 40 MG Tablet PO ×2 (09:54→16:51)
--- NOTE | 2021-04-18 11:42 | PN.HOSP_ITS ---
Documented by User: Winifred Baptiste NP-C 04/18/21 11:59 Subjective Subjective Patient seen and examined. Patient sitting in bed no distress noted. Patient states that he is not experiencing any shortness of breath, currently on room air. Patient was supposed to go for heart cath today but however due to his low potassium he will go for cardiac catheterization tomorrow 04/19/[address] Martinez. Objective Data Objective Data Vital Signs: Vital Signs Temp Pulse Resp BP Pulse Ox 97.6 F L 89 18 106/62 89 04/18/21 07:51 04/18/21 11:00 04/18/21 07:51 04/18/21 07:51 04/18/21 08:39 Oxygen Flow Rate (L/min) 93 Oxygen Delivery Method Room Air Weight: 178 lb 9.191 oz Body Mass Index (BMI) 27.5 Intake & Output: Intake and Output for Last 24 Hours 04/16/21 04/17/21 04/18/21 23:59 23:59 23:59 Intake Total 1200 / 1340 812.22 / 812.22 Output Total 4125 / 6705 5530 / 5530 Balance -2925 / -5365 -4717.78 / -4717.78 Lab / Micro Data Result Diagrams: 04/18/21 05:45 04/18/21 05:45 Labs: Laboratory Results - last 24 hr 04/18/21 05:45: WBC 8.3, RBC 4.60, Hgb 13.7, Hct 42.0, MCV 91.3, MCH 29.8, MCHC 32.6, RDW Std Deviation 50.9 H, RDW Coeff of [place] 15.4 H, Plt Count 214, MPV 10.2, Immature Gran % (Auto) 0.400, Neut % (Auto) 79.7 H, Lymph % (Auto) 7.4 L, [place] % (Auto) 11.4 H, Eos % (Auto) 1.0, Baso % (Auto) 0.1, Absolute Neuts (auto) 6.6, Absolute Lymphs (auto) 0.61 L, Nucleated RBC % 0 04/18/21 05:45: Sodium 136, Potassium 2.4 L*, Chloride 92 L, Carbon Dioxide 31.0, Anion Gap 13, BUN 26 H, Creatinine 0.88, Estim Creat Clear Calc 76.99, Est GFR (MDRD) Af Amer 110, Est GFR (MDRD) Non-Af 91, BUN/Creatinine Ratio 29.6 H, Glucose 106, Calcium 8.4 L 04/18/21 05:45: Magnesium 1.8 Radiography Diagnostic Testing: Radiology Impression Echocardiogram 04/16/21 18:23 Interpretation Summary The estimated ejection fraction is 10-15 %. There is evidence of diastolic dysfunction. There is severe global hypokinesis of the left ventricle. The left atrium is severely enlarged. Mild (1+) mitral valve insufficiency. Pulmonary artery systolic pressure is 60-65 mmHg. Mild to moderate aortic stenosis. Ordering Physician: Samantha Peña Referring Physician: IMAN PCP Performed By: Parvin Germain, DAVIDSON, RVT Chest X-Ray 04/18/21 05:55 IMPRESSION: Stable. Electronically Signed: Ronnie Giron MD (Brooks) at 7:50 EST , Service support , ADDENDUM: 04/18/21 0808 IMPRESSION: Stable. Electronically Signed: Ronnie Giron MD (Brooks) at 7:50 EST , Service support , Physical Exam Const alert, oriented x3 and no apparent distress HEENT head/scalp atraumatic Head and Scalp: normocephalic Eyes conjunctivae normal and no scleral icterus Neck full ROM and supple General: trachea midline Resp normal respiratory effort, normal air movement and clear to auscultation bilaterally Effort and Inspection: able to speak in complete sentences and symmetric chest movement Cardio regular rate, regular rhythm, S1 normal heart sound and S2 normal heart sound GI normal to inspection, nondistended, normoactive bowel sounds, soft to palpation and non-tender Extremity normal to inspection, full ROM and no clubbing, cyanosis or edema Peripheral Pulses: Yes pulses 2+ throughout Skin no rashes or lesions noted, no wounds and skin turgor normal Neuro oriented x3, moves all extremities, no focal motor deficits and no sensory deficits noted Sensorium / Orientation: awake and alert Psych affect normal Assessment & Plan Assessment/Plan (1) Pleural effusion: (2) Hypokalemia: (3) Acute exacerbation of CHF (congestive heart failure): QUALIFIERS: Heart failure type: systolic Qualified Code(s): I50.23 - Acute on chronic systolic (congestive) heart failure (4) Atrial fibrillation, new onset: PLAN: Patient is a 71-year-old male who originally presented with shortness of breath and was diagnosed with acute on chronic CHF exacerbation. Patient was also noted to have new onset atrial fibrillation with RVR. Patient is planned to go to cardiac catheterization on 04/19/[address] Martinez. 1. Acute respiratory distress secondary to acute on chronic HFrEF exacerbation with ischemic cardiomyopathy -Patient currently on room air -Echocardiogram demonstrates EF 10 to 15% with severe global hypokinesis of the left ventricle -Lasix drip discontinued at 4 AM due to cardiac catheterization however due to patient severe hypokalemia patient will go for heart cath 04/19/2021 -Strict intake and output with 1500 mL fluid restriction -Daily weights -Cardiology following 2. New onset atrial fibrillation with RVR -Continue metoprolol -Currently rate controlled -[id number] score is 4 3. Hypokalemia -Likely secondary to administration of Lasix drip -Potassium 2.4 this morning, patient received 40 mEq potassium chloride IV and 40 mEq potassium chloride p.o. -We will recheck potassium level at 3 PM or 1 hour following the administration of IV potassium to optimize patient for cardiac catheterization tomorrow 4. CAD status post CABG and stent -CABG in 2009, ORELLANA to LAD -Stent x1 ORELLANA to LAD 2019 -Has implantable ICD 5. Hypertension -Continue metoprolol, lisinopril DVT prophylaxis-Lovenox This patient was seen by EUSEBIO PrestonC under the supervision of Dr. Hilario Documented by User: Dr. Jasmina Hilario MD 04/18/21 15:17 Objective Data Lab / Micro Data Result Diagrams: 04/18/21 05:45 04/18/21 05:45 Charges/Coding Addendum Addendum: Patient seen by Winifred CASTRO under my supervision Patient seen and examined. He felt better today and had no complaints. Review of systems otherwise negative. His shortness of breath has improved. He was due for cardiac cath today. However his potassium was low at 2.4 so cardiac cath was canceled and postponed till tomorrow. He has otherwise remained hemodynamically stable. O/E: Const alert, oriented x3 and no apparent distress HEENT head/scalp atraumatic and moist oral mucous membranes Head and Scalp: normocephalic Eyes PERRL, EOMs intact bilaterally and conjunctivae normal Neck no lymphadenopathy, supple and no JVD Resp diminished breath sounds bibasally, no wheezes, no crackles. on 3L of oxygen by nasal canula Cardio regular rate, regular rhythm, no murmurs and no JVD GI normal to inspection, nondistended, normoactive bowel sounds, soft to palpation and non-tender Extremity normal to inspection, full ROM and no clubbing, cyanosis or edema Skin no rashes or lesions noted, no wounds, skin turgor normal and no jaundice Neuro CN's II-XII intact bilaterally Psych affect normal Patient transitioned off of Lasix drip onto IV Lasix. 2D echo shows EF of 10 to 15% with severe global hypokinesis of the left ventricle. Replace potassium aggressively. Fluid restriction 1500 cc daily. Titrate oxygen to maintain saturation above 90%. For cardiac cath tomorrow. Lovenox for DVT prophylaxis. Visit Charges Inpatient E&M: 51155 Subs Hosp L2
--- NOTE | 2021-04-18 12:58 | PN.CARD_ITS ---
Subjective Subjective Patient continues to improve. His potassium was low today and his heart cath was canceled. His potassium is being replaced and rechecked. We switched his Lasix from IV drip to p.o. Objective Data Vital Signs: Vital Signs Temp Pulse Resp BP Pulse Ox 97.6 F L 89 18 106/62 89 04/18/21 07:51 04/18/21 11:00 04/18/21 07:51 04/18/21 07:51 04/18/21 08:39 Oxygen Flow Rate (L/min) 93 Oxygen Delivery Method Room Air Weight: 178 lb 9.191 oz Body Mass Index (BMI) 27.5 Intake & Output: Intake and Output for Last 24 Hours 04/16/21 04/17/21 04/18/21 23:59 23:59 23:59 Intake Total 1200 / 1340 912.22 / 912.22 Output Total 4125 / 6705 5530 / 5530 Balance -2925 / -5365 -4617.78 / -4617.78 Lab / Micro Data Result Diagrams: 04/18/21 05:45 04/18/21 05:45 Labs: Laboratory Results - last 24 hr 04/18/21 05:45: WBC 8.3, RBC 4.60, Hgb 13.7, Hct 42.0, MCV 91.3, MCH 29.8, MCHC 32.6, RDW Std Deviation 50.9 H, RDW Coeff of Anna 15.4 H, Plt Count 214, MPV 10.2, Immature Gran % (Auto) 0.400, Neut % (Auto) 79.7 H, Lymph % (Auto) 7.4 L, [place] % (Auto) 11.4 H, Eos % (Auto) 1.0, Baso % (Auto) 0.1, Absolute Neuts (auto) 6.6, Absolute Lymphs (auto) 0.61 L, Nucleated RBC % 0 04/18/21 05:45: Sodium 136, Potassium 2.4 L*, Chloride 92 L, Carbon Dioxide 31.0, Anion Gap 13, BUN 26 H, Creatinine 0.88, Estim Creat Clear Calc 76.99, Est GFR (MDRD) Af Amer 110, Est GFR (MDRD) Non-Af 91, BUN/Creatinine Ratio 29.6 H, Glucose 106, Calcium 8.4 L 04/18/21 05:45: Magnesium 1.8 Cardiology Labs/Tests 04/18/21 05:45: WBC 8.3, RBC 4.60, Hgb 13.7, Hct 42.0, MCV 91.3, MCH 29.8, MCHC 32.6, Plt Count 214, MPV 10.2, Immature Gran % (Auto) 0.400, Neut % (Auto) 79.7 H, Lymph % (Auto) 7.4 L, [place] % (Auto) 11.4 H, Eos % (Auto) 1.0, Baso % (Auto) 0.1, Absolute Neuts (auto) 6.6, Nucleated RBC % 0 04/18/21 05:45: Sodium 136, Potassium 2.4 L*, Chloride 92 L, Carbon Dioxide 31.0, Anion Gap 13, BUN 26 H, Creatinine 0.88, Est GFR (MDRD) Af Amer 110, Est GFR (MDRD) Non-Af 91, BUN/Creatinine Ratio 29.6 H, Glucose 106, Calcium 8.4 L 04/18/21 05:45: Magnesium 1.8 Rhythm: EKG: ECHO: Stress Test: Cardiac Cath: PCI: CT Surgery: Holter monitor: EPS: PPM: CXR: Chest CT Scan: Radiography Diagnostic Testing: Radiology Impression Echocardiogram 04/16/21 18:23 Interpretation Summary The estimated ejection fraction is 10-15 %. There is evidence of diastolic dysfunction. There is severe global hypokinesis of the left ventricle. The left atrium is severely enlarged. Mild (1+) mitral valve insufficiency. Pulmonary artery systolic pressure is 60-65 mmHg. Mild to moderate aortic stenosis. _ Ordering Physician: Samantha Peña Referring Physician: NO PCP Performed By: Parvin Germain, RDCS, RVT Chest X-Ray 04/18/21 05:55 IMPRESSION: Stable. Electronically Signed: Ronnie Giron MD (Brooks) at 7:50 EST , Service support , ADDENDUM: 04/18/21 0808 IMPRESSION: Stable. Electronically Signed: Ronnie Giron MD (Brooks) at 7:50 EST , Service support , Physical Exam Const alert and oriented x3 Orientation / Consciousness: awake HEENT normocephalic Eyes no scleral icterus Chest inspection of chest normal Resp normal respiratory effort Auscultation: crackles bilateral lower and diminished lung sounds left lower Extremity General Extremity: edema bilateral lower extremity Details: moderate Skin no rashes or lesions noted Psych mental status grossly normal Assessment & Plan Assessment/Plan (1) Acute exacerbation of CHF (congestive heart failure): QUALIFIERS: Heart failure type: systolic Qualified Code(s): I50.23 - Acute on chronic systolic (congestive) heart failure PLAN: Improving. Switch Lasix to p.o. Possible coronary angiogram tomorrow if his creatinine remains stable. (2) Atrial fibrillation, new onset: PLAN: Responded well to metoprolol. After his coronary angiogram he will need anticoagulation. (3) History of coronary artery stent placement: PLAN: Continue present management (4) History of coronary artery bypass graft: PLAN: Continue present management (5) Atherosclerosis of coronary artery of [place] heart without angina pectoris: QUALIFIERS: Coronary Disease-Associated Artery/Lesion type: [place] artery Qualified Code(s): I25.10 - Atherosclerotic heart disease of [place] coronary artery without angina pectoris PLAN: Coronary angiogram likely tomorrow as this could be an anginal equi valent. (6) Ischemic cardiomyopathy: (7) Implantable cardioverter-defibrillator (ICD) in situ: Charges/Coding Visit Charges Inpatient E&M: 49465 Subs Hosp L3
[2021-04-18 15:19] LABS: Potassium 3.1 mmol/L (3.5-5.1)
[2021-04-18] MEDS: Enoxaparin 80 MG/0.8 ML Syringe SC (16:52)
--- NOTE | 2021-04-18 16:59 | CASEMGMT ---
SEDRICK CASEY NOTE: Pt qualifies for a Palliative referral per the [facility] palliative screening tool at this time. Dr Hilario aware and states ok for Palliative c/s at this time. Order placed. TC to [facility] to notify her of referral. Face Sheet and screening tool e-mailed to Palliative at this time. [place] PAYTON RN CM
[2021-04-18] MEDS: Atorvastatin Calcium 80 MG Tablet PO (20:10)
--- NOTE | 2021-04-18 20:47 | PCS.PANDOC ---
PANDEMIC DOCUMENTATION INITIATED: Date: 12/17/2020 Time: 190
--- NOTE | 2021-04-18 22:14 | NURSING ---
RN noticed pt's telemetry not picking up. [employer]IFACTS CONSERVATOR entered room to pt dressed with telemetry off. pt states he was going downstairs to get coffee. Per dayshift RN, this happened earlier as well. ARTIFACTS CONSERVATOR put pt back in gown, tele on, and bed alarm set.
[2021-04-19] VITALS (10 sets, daily range): BP systolic 95–122; BP diastolic 77–96; PULSE 63–77; RESP 14–16; TEMP 36.4–36.6; O2SAT 93–99
--- NOTE | 2021-04-19 05:55 | EKG12_ITS ---
Test Reason : AM EKG Blood Pressure : / mmHG Vent. Rate : 067 BPM Atrial Rate : 375 BPM P-R Int : 000 ms QRS Dur : 116 ms QT Int : 470 ms P-R-T Axes : 000 -18 155 degrees QTc Int : 496 ms Atrial fibrillation Anteroseptal infarct , age undetermined T wave abnormality, consider lateral ischemia Abnormal ECG When compared with ECG of 18-APR-2021 05:35, MANUAL COMPARISON REQUIRED, DATA IS UNCONFIRMED Confirmed by YENNIFER FULLER, FARIBA ([id number]), health editor KAREEM BOYD ([id number]) on 04/19/2021 12:49:10 PM Referred By: DR MCCRAY Confirmed By:JACQUELINE DE OLIVEIRA MD
[2021-04-19] MEDS: Lisinopril 20 MG Tablet PO (06:05)
[2021-04-19] MEDS: Aspirin E.C. 81 MG Tablet PO (06:05)
[2021-04-19] MEDS: Metoprolol(XL)Succ 100 MG Tablet PO (06:05)
[2021-04-19] MEDS: 0.9% Saline Lock 10 ML Syringe IV (06:06)
[2021-04-19 06:16] LABS: Absolute Lymphocyte Count 0.77 X10^3/uL (0.83-4.51); Absolute Neutrophil Count 4.5 X10^3/uL (2.0-7.7); Basophil# 0.01 X10^3/uL; Basophil% 0.2 % (0-1); Eosinophils% 1.6 % (0-5); Hematocrit 40.1 % (40-54); Hemoglobin 13.5 g/dL (13.0-16.5); Lymphocyte # 0.77 X10^3/ul (0.83-4.51); Lymphocyte % 12.5 % (19-41); Mean Corp Hgb Conc 33.7 g/dL (32-36); Mean Corpuscular Hgb 31.1 pg (27.0-32.0); Mean Corpuscular Volume 92.4 fL (80-94); Mean Platelet Vol. 9.9 fl (6.2-12.0); Monocyte# 0.76 X10^3/uL; Monocyte% 12.4 % (0-10); NRBC Flagged by Analyzer 0 % (0-5); Neutrophil # 4.49 X10^3/uL (2.7-7.7); Platelet Count 213 K/mm3 (150-450); RBC Distribution Width CV 15.9 % (11.6-14.6); RBC Distribution Width SD 53.3 fl (35.1-43.9); Red Blood Count 4.34 M/mm3 (4.6-6.2); White Blood Count 6.2 K/mm3 (4.4-11.0)
[2021-04-19 06:39] LABS: Anion Gap 8 (5-15); BUN 22 mg/dL (7-18); BUN/Creat Ratio 22.9 RATIO (10-20); Calcium,Total 8.3 mg/dL (8.5-10.1); Chloride 95 mmol/L (98-107); Creatinine, Serum 0.96 mg/dL (0.70-1.30); EST Glomerular Filtration Rate 82 mL/min (>60); Est Glom Filt Rate - Afr Amer 99 mL/min (>60); Estimated Creatinine Clearance 70.58 ml/min; Glucose 95 mg/dL (74-106); Potassium 3.6 mmol/L (3.5-5.1); Sodium Level 134 mmol/L (136-145)
--- NOTE | 2021-04-19 11:12 | CL.D_ITS ---
Patient Name: NICHOLE HURTADO Study Date: 04/19/2021 Performing: Soraya Martinez MD Ht: 68.89 inches 175 cm : 1950 Wt: 167.55 lbs 76 kg Age: 71 Gender: male BSA: 1.91 PROCEDURE(S) PERFORMED [id number])LHC/COR/CABG CLINICAL PROFILE AND INDICATIONS Indications: Cardiomyopathy Heart Failure: NYHA Class: 3, Newly Diagnosed: No, Heart Failure Type: Systolic Stress/Imaging Stress/Image Study Performed: No CAD Presentations: Other: CHF CONCLUSIONS CAD as described. Patent 05/04 bypass graft. No significant change from final post PCI pictures in 02/02. RECOMMENDATIONS DESCRIPTION OF PROCEDURE The patient arrived to the procedure lab. The risks and benefits of the procedure as well as a full d escription of our services here and current unavailability of surgical backup were fully explained to the patient and/or their significant other prior to the catheterization. The Timeout was completed, verifying the correct patient and procedure. The patient's procedural site was prepped and draped in the usual fashion. Local anesthetic was given subcutaneously to right groin region with Lidocaine 2%. Using a modified Seldinger technique, arterial access was obtained via the right femoral artery, wit h Micropuncture set, arterial access was obtained via the right femoral artery, a 5Fr sheath was inse rted. Left Coronary Artery selective angiography was performed in multiple views using a 5 Fr. JL4 c atheter. Left internal mammary artery graft to the LAD selective angiography was performed in multipl e views using a 5 Fr. IM catheter.Contrast was injected through the sheath and the Right Iliac and Femoral artery were assessed for possible closure device.The arterial sheath was pulled and a Perclose closure device was deployed for hemostasis CORONARY ANGIOGRAPHY DOMINANCE: Right Dominant LEFT MAIN: Mild luminal irregularities LEFT ANTERIOR DESCENDING ARTERY: PROX LAD: is occluded CIRCUMFLEX ARTERY: PROX CIRC: 30 % Stenosis RIGHT CORONARY ARTERY: MID RCA: is occluded GRAFTS: ORELLANA graft to the Mid LAD is patent. Previously placed stents are widely patent. ORELLANA provides colla terals to the RCA COMPLICATIONS No Complications PROCEDURE MEDICATIONS Fentanyl 50 mcg IV Versed 1 mg IV Oxygen: 2 L/min via nasal cannula SUMMARY OF HEMODYNAMIC DATA Time AIR REST ECG 09:29:24 AO 115/69 (89) SA 10:09:11 Signed By Soraya Martinez MD On 04/19/2021 11:11:40 Soraya Martinez MD
--- NOTE | 2021-04-19 11:26 | PN.HOSP_ITS ---
Subjective Subjective Patient seen and examined. Patient sitting in chair no distress noted. Patient awaiting to go to Senior Accounting Specialist at 9:30 AM Objective Data Objective Data Vital Signs: Vital Signs Temp Pulse Resp BP Pulse Ox 97.5 F L 72 16 122/96 H 95 04/19/21 08:19 04/19/21 08:19 04/19/21 08:19 04/19/21 08:19 04/19/21 08:19 Oxygen Flow Rate (L/min) 93 Oxygen Delivery Method Room Air Weight: 167 lb 15.876 oz Body Mass Index (BMI) 27.5 Intake & Output: Intake and Output for Last 24 Hours 04/17/21 04/18/21 04/19/21 23:59 23:59 23:59 Intake Total 1200 / 1340 1252.22 / 1252.22 360 / 360 Output Total 4125 / 6705 5880 / 5880 300 / 300 Balance -2925 / -5365 -4627.78 / -4627.78 60 / 60 Lab / Micro Data Result Diagrams: 04/19/21 06:00 04/19/21 06:00 Labs: Laboratory Results - last 24 hr 04/18/21 14:45: Potassium 3.1 L 04/19/21 06:00: WBC 6.2, RBC 4.34 L, Hgb 13.5, Hct 40.1, MCV 92.4, MCH 31.1, MCHC 33.7, RDW Std Deviation 53.3 H, RDW Coeff of Anna 15.9 H, Plt Count 213, MPV 9.9, Immature Gran % (Auto) 0.300, Neut % (Auto) 73.0 H, Lymph % (Auto) 12.5 L, [place] % (Auto) 12.4 H, Eos % (Auto) 1.6, Baso % (Auto) 0.2, Absolute Neuts (auto) 4.5, Absolute Lymphs (auto) 0.77 L, Nucleated RBC % 0 04/19/21 06:00: Sodium 134 L, Potassium 3.6, Chloride 95 L, Carbon Dioxide 31.0, Anion Gap 8, BUN 22 H, Creatinine 0.96, Estim Creat Clear Calc 70.58, Est GFR (MDRD) Af Amer 99, Est GFR (MDRD) Non-Af 82, BUN/Creatinine Ratio 22.9 H, Glucose 95, Calcium 8.3 L Physical Exam Const alert, oriented x3 and no apparent distress General Appearance: cooperative HEENT normocephalic, head/scalp atraumatic and hearing grossly normal bilaterally Head and Scalp: normocephalic Eyes conjunctivae normal and no scleral icterus Neck full ROM and supple General: trachea midline Resp normal respiratory effort, normal air movement and clear to auscultation b ilaterally Effort and Inspection: able to speak in complete sentences and symmetric chest movement Auscultation: crackles Cardio regular rate, regular rhythm, S1 normal heart sound and S2 normal heart sound GI normal to inspection, nondistended, normoactive bowel sounds, soft to palpation and non-tender Extremity normal to inspection, full ROM and no clubbing, cyanosis or edema Skin no rashes or lesions noted, no wounds and skin turgor normal Neuro oriented x3, moves all extremities, no focal motor deficits and no sensory deficits noted Sensorium / Orientation: awake and alert Speech: speech normal Psych affect normal Assessment & Plan Assessment/Plan (1) Pleural effusion: (2) Hypokalemia: (3) Acute exacerbation of CHF (congestive heart failure): QUALIFIERS: Heart failure type: systolic Qualified Code(s): I50.23 - Acute on chronic systolic (congestive) heart failure (4) Atrial fibrillation, new onset: PLAN: Patient is a 71-year-old male who originally presented with shortness of breath and was diagnosed with acute on chronic CHF exacerbation. Patient was also noted to have new onset atrial fibrillation with RVR. Patient is planned to go to cardiac catheterization on 04/19/[address] Martinez. 1. Acute respiratory distress secondary to acute on chronic HFrEF exacerbation with ischemic cardiomyopathy -Patient currently on room air -Echocardiogram demonstrates EF 10 to 15% with severe global hypokinesis of the left ventricle -Cardiac catheterization demonstrates patent ORELLANA graft to the mid LAD as well as patent previously placed stents. -Strict intake and output with 1500 mL fluid restriction -Daily weights -Cardiology following 2. New onset atrial fibrillation with RVR -Continue metoprolol -Currently rate controlled -[id number]-TLRo score is 4 3. Hypokalemia -Likely secondary to administration of Lasix drip, resolved with replacement -Potassium 3.6 -BMP ordered for a.m. 4. CAD status post CABG and stent -CABG in 2009, ORELLANA to LAD -Stent x1 ORELLANA to LAD 2019 -Has implantable ICD 5. Hypertension -Continue metoprolol, lisinopril DVT prophylaxis-Lovenox This patient was seen by MATTHEW Preston under the supervision of Dr. Hilario
--- NOTE | 2021-04-19 14:04 | PCM.DC ---
Discharge Instructions Diet Discharge Diet: Low fat / Low cholesterol, 6 Cup Fluid Restriction and 2000 mg Sodium Diet Activity Discharge Activity: Return to Normal Activity and May Not Shower (until 04/20/2021No [facility]) Lifting Restrictions: NO lifting more than 10 pounds x5 days Dressing / Incision Call your doctor if your incision/area has: Continuous Slow Oozing, Sudden Increased Bleeding, Increased Pain/ Swelling and Swelling at the incision site Call your doctor if you observe: Shortness of breath, Dizziness, Fainting spells, Swelling in the ankles, Chest pain and Increased palpitations (irregular heartbeat) Remove Dressing in: 1 day Follow Up Care Test Results: Test results from this visit will be discussed in further detail at your follow-up appointment, if applicable. Discharge Plan Admission Admit Date/Time: 04/16/21 17:48 Primary Reason for Your Visit: CHF exac, AFib Attending Provider: Jasmina Hilario Primary Care Provider: Care Physician,No Primary Consulting Providers: Cayla Martinez Discharge Orders/Prescriptions Prescriptions: New aspirin 81 mg Tablet,Delayed Release (Dr/Ec) 81 mg PO BREAKFAST Qty: 0 RF: 0 atorvastatin 80 mg Tablet 80 mg PO QHS 30 Days Qty: 30 RF: 0 lisinopril 20 mg Tablet 20 mg PO DAILY Qty: 0 RF: 0 metoprolol succinate 100 mg Tablet Extended Release 24 Hr 100 mg PO DAILY 30 Days Qty: 30 RF: 0 furosemide 40 mg tablet 40 mg PO BID 30 Days Qty: 60 RF: 0 potassium chloride 20 mEq tablet extended release 20 meq PO BID 30 Days Qty: 60 RF: 0 Discontinued aspirin [Adult Aspirin Regimen] 81 mg tablet,delayed release (DR/EC) 81 mg PO DAILY Qty: 90 RF: 3 carvedilol 6.25 mg tablet 6.25 mg PO BID Qty: 180 RF: 3 lisinopril 20 mg tablet 20 mg PO DAILY Qty: 90 RF: 3 furosemide 40 mg tablet 40 mg PO QAM Qty: 90 RF: 3 Referrals / Follow Up: Care Physician,No Primary [Primary Care Provider] - Disposition Disposition (needs filled in before D/C Order can be placed): Home, Self Care
--- NOTE | 2021-04-19 14:15 | DS.PCM_ITS ---
Documented by User: MATTHEW Preston 04/19/21 14:22 Providers Date of Admission: 04/16/21 Primary Care Physician: No Primary Care Phys Consultations 04/16/21 18:23 Consult: Cardiology Routine Consulting Provider: Cayla Martinez Reason for Consult: PKTY--> CHF acute and AFIB RVR EMERGENT Consult: No MD Notified: Yes Date Notified: 04/16/21 Time Notified: 18:29 Method of Notification: Text Reason For Visit: ACUTE DECOMPENSATED SYSTOLIC HEART FAILURE/AFIB Diagnosis Discharge Diagnosis (1) Pleural effusion: Status: Acute Code(s): J90 - Pleural effusion, not elsewhere classified (2) Hypokalemia: Status: Acute Code(s): E87.6 - Hypokalemia (3) Acute exacerbation of CHF (congestive heart failure): Status: Chronic Code(s): I50.9 - Heart failure, unspecified Qualifiers: Heart failure type: systolic Qualified Code(s): I50.23 - Acute on chronic systolic (congestive) heart failure (4) Atrial fibrillation, new onset: Status: Acute Code(s): I48.91 - Unspecified atrial fibrillation Medications at Discharge Home Medications apixaban 5 mg PO BID 30 Days #60 tab 04/19/21 aspirin 81 mg PO BREAKFAST #0 tab 04/19/21 atorvastatin 80 mg PO QHS 30 Days #30 tab 04/19/21 furosemide 40 mg PO BID 30 Days #60 tab 04/19/21 lisinopril 20 mg PO DAILY #0 tab 04/19/21 metoprolol succinate 100 mg PO DAILY 30 Days #30 tab 04/19/21 potassium chloride 20 meq PO BID 30 Days #60 tab 04/19/21 Hospital Course Operations None Procedures 2-D Echocardiogram, Cardiac catheterization and EKG Summary of Care Provided Minutes Spent on Discharge: 35 Hospital Course: Patient is a 71-year-old male who originally presented to the ER with complaints of shortness of breath, weight gain and increased weakness. Patient underwent echocardiogram which demonstrated EF of 10 to 15%. Patient was on Lasix drip during admission and experienced hypokalemia as a result. Patient received potassium replacement will be discharged home on potassium replacement as well as Lasix p.o. twice daily. Patient underwent cardiac catheterization with Dr. Martinez which demonstrated ORELLANA graft to the mid LAD is patent as well as patent previously placed stents. ORELLANA provides collaterals to the RCA. Patient will be transitioned from carvedilol p.o. to metoprolol p.o. due to new onset A. fib. Patient will be discharged home on a daily aspirin as well as statin therapy. Patient will follow up with cardiology as an outpatient. Physical Exam Const alert, oriented x3 and no apparent distress General Appearance: cooperative HEENT normocephalic, head/scalp atraumatic and hearing grossly normal bilaterally Eyes conjunctivae normal and no scleral icterus Neck full ROM and supple General: trachea midline Resp normal respiratory effort, normal air movement and clear to auscultation bilaterally Effort and Inspection: able to speak in complete sentences and symmetric chest movement Auscultation: crackles Cardio regular rate, regular rhythm, S1 normal heart sound and S2 normal heart sound GI normal to inspection, nondistended, normoactive bowel sounds, soft to palpation and non-tender Extremity normal to inspection, full ROM and no clubbing, cyanosis or edema Skin no rashes or lesions noted, no wounds and skin turgor normal Neuro oriented x3, moves all extremities, no focal motor deficits and no sensory deficits noted Sensorium / Orientation: awake and alert Speech: speech normal Psych affect normal Weight / BMI Weight Weight: 167 lb 15.876 oz Body Mass Index (BMI) 27.5 ABG / Lab / Microbiology Data Result Diagrams: 04/19/21 06:00 04/19/21 06:00 Laboratory: Laboratory Results - last 24 hr 04/18/21 14:45: Potassium 3.1 L 04/19/21 06:00: WBC 6.2, RBC 4.34 L, Hgb 13.5, Hct 40.1, MCV 92.4, MCH 31.1, MCHC 33.7, RDW Std Deviation 53.3 H, RDW Coeff of Anna 15.9 H, Plt Count 213, MPV 9.9, Immature Gran % (Auto) 0.300, Neut % (Auto) 73.0 H, Lymph % (Auto) 12.5 L, Storey % (Auto) 12.4 H, Eos % (Auto) 1.6, Baso % (Auto) 0.2, Absolute Neuts (auto) 4.5, Absolute Lymphs (auto) 0.77 L, Nucleated RBC % 0 04/19/21 06:00: Sodium 134 L, Potassium 3.6, Chloride 95 L, Carbon Dioxide 31.0, Anion Gap 8, BUN 22 H, Creatinine 0.96, Estim Creat Clear Calc 70.58, Est GFR (MDRD) Af Amer 99, Est GFR (MDRD) Non-Af 82, BUN/Creatinine Ratio 22.9 H, Glucose 95, Calcium 8.3 L D/C Instructions Discharge Diet: Low fat / Low cholesterol, 6 Cup Fluid Restriction and 2000 mg Sodium Diet Call your doctor if your incision/area has: Continuous Slow Oozing, Sudden Inc reased Bleeding, Increased Pain/ Swelling and Swelling at the incision site Call your doctor if you observe: Shortness of breath, Dizziness, Fainting spells, Swelling in the ankles, Chest pain and Increased palpitations (irregular heartbeat) Meaningful Use Info Meaningful Use Diagnoses (Choose all that apply): CHF CHF WANDA/ARB ordered at discharge?: Yes Documented LVEF (%): 10 Discharge Plan Admission Admit Date/Time: 04/16/21 17:48 Primary Reason for Your Visit: CHF exac, AFib Attending Provider: Jasmina Hilario Primary Care Provider: Care Physician,No Primary Consulting Providers: Cayla Martinez Instructions Additional Instructions / Restrictions: Patient Problems: Altered Health Status related to Hospitalization Patient Goals: *Optimal Level of Health *Keep Appointments *Medication Compliance *Remain Safe Discharge Orders/Prescriptions Prescriptions: New aspirin 81 mg Tablet,Delayed Release (Dr/Ec) 81 mg PO BREAKFAST Qty: 0 RF: 0 atorvastatin 80 mg Tablet 80 mg PO QHS 30 Days Qty: 30 RF: 0 lisinopril 20 mg Tablet 20 mg PO DAILY Qty: 0 RF: 0 metoprolol succinate 100 mg Tablet Extended Release 24 Hr 100 mg PO DAILY 30 Days Qty: 30 RF: 0 furosemide 40 mg tablet 40 mg PO BID 30 Days Qty: 60 RF: 0 potassium chloride 20 mEq tablet extended release 20 meq PO BID 30 Days Qty: 60 RF: 0 apixaban 5 mg tablet 5 mg PO BID 30 Days Qty: 60 RF: 0 Discontinued aspirin [Adult Aspirin Regimen] 81 mg tablet,delayed release (DR/EC) 81 mg PO DAILY Qty: 90 RF: 3 carvedilol 6.25 mg tablet 6.25 mg PO BID Qty: 180 RF: 3 lisinopril 20 mg tablet 20 mg PO DAILY Qty: 90 RF: 3 furosemide 40 mg tablet 40 mg PO QAM Qty: 90 RF: 3 Referrals / Follow Up: Care Physician,No Primary [Primary Care Provider] - (no primary care physician. List of local physicians given to patient) Disposition Disposition (needs filled in before D/C Order can be placed): Home, Self Care Documented by User: Dr. Jasmina Hilario MD 04/19/21 16:03 Providers Date of Admission: 04/16/21 Reason For Visit: ACUTE DECOMPENSATED SYSTOLIC HEART FAILURE/AFIB Medications at Discharge Home Medications apixaban 5 mg PO BID 30 Days #60 tab 04/19/21 aspirin 81 mg PO BREAKFAST #0 tab 04/19/21 atorvastatin 80 mg PO QHS 30 Days #30 tab 04/19/21 furosemide 40 mg PO BID 30 Days #60 tab 04/19/21 lisinopril 20 mg PO DAILY #0 tab 04/19/21 metoprolol succinate 100 mg PO DAILY 30 Days #30 tab 04/19/21 potassium chloride 20 meq PO BID 30 Days #60 tab 04/19/21 ABG / Lab / Microbiology Data Result Diagrams: 04/19/21 06:00 04/19/21 06:00 Discharge Plan Admission Admit Date/Time: 04/16/21 17:48 Primary Reason for Your Visit: CHF exac, AFib Attending Provider: Jasmina Hilario Primary Care Provider: Care Physician,No Primary Consulting Providers: Cayla Martinez Instructions Additional Instructions / Restrictions: Patient Problems: Altered Health Status related to Hospitalization Patient Goals: *Optimal Level of Health *Keep Appointments *Medication Compliance *Remain Safe Discharge Orders/Prescriptions Prescriptions: New aspirin 81 mg Tablet,Delayed Release (Dr/Ec) 81 mg PO BREAKFAST Qty: 0 RF: 0 atorvastatin 80 mg Tablet 80 mg PO QHS 30 Days Qty: 30 RF: 0 lisinopril 20 mg Tablet 20 mg PO DAILY Qty: 0 RF: 0 metoprolol succinate 100 mg Tablet Extended Release 24 Hr 100 mg PO DAILY 30 Days Qty: 30 RF: 0 furosemide 40 mg tablet 40 mg PO BID 30 Days Qty: 60 RF: 0 potassium chloride 20 mEq tablet extended release 20 meq PO BID 30 Days Qty: 60 RF: 0 apixaban 5 mg tablet 5 mg PO BID 30 Days Qty: 60 RF: 0 Discontinued aspirin [Adult Aspirin Regimen] 81 mg tablet,delayed release (DR/EC) 81 mg PO DAILY Qty: 90 RF: 3 carvedilol 6.25 mg tablet 6.25 mg PO BID Qty: 180 RF: 3 lisinopril 20 mg tablet 20 mg PO DAILY Qty: 90 RF: 3 furosemide 40 mg tablet 40 mg PO QAM Qty: 90 RF: 3 Referrals / Follow Up: Care Physician,No Primary [Primary Care Provider] - (no primary care physician. List of local physicians given to patient) Disposition Disposition (needs filled in before D/C Order can be placed): Home, Self Care Charges/Coding Addendum Addendum: Patient seen by Winifred CASTRO under my supervision Patient is a 71 y/o male with a PMH as outlined who was admitted via the ED on 04/19/2021 with a complaint of shortness of breath and weight gain. His shortness of breath had been worsening over the last month prior to admission with associated exertional dyspnea. Chest x-ray showed left-sided pleural effusion. proBNP was elevated at 2578. He was admitted and managed for acute hypoxic respiratory failure due to acute on chronic exacerbation of heart failure with reduced ejection fraction. He was started on Lasix drip. He had a 2D echo which showed EF of 10-15%, with severe global hypokinesis of the LV. He had a cardiac cath which showed patent grafts to the mid LAD as well as patent previously placed stents. He was also noted to have new onset atrial fibrillation. His shortness of breath resolved and he was weaned off oxygen. He remained stable and was discharged home. Carvedilol was switched to PO me toprolol, and high intensity statin, as well as lisinopril and lasix 40mg bid. He was also discharged home on PO potassium 20meq bid as well as eliquis 5mg bid for DVT prophylaxis. He is to follow up with his PCP and field sales representative in 1-2 weeks. Patient seen and examined prior to discharge. He had no other complaints. He had no active complaints and feels well. Review of systems is otherwise negative. Labs and vitals reviewed. Home meds reviewed and reconciled. O/E: Const alert, oriented x3 and no apparent distress General Appearance: cooperative HEENT normocephalic, head/scalp atraumatic and hearing grossly normal bilaterally Eyes conjunctivae normal and no scleral icterus Neck full ROM and supple General: trachea midline Resp diminished breath sounds bibasally, no wheezes or crackles. Cardio regular rate, regular rhythm, S1 normal heart sound and S2 normal heart sound GI normal to inspection, nondistended, normoactive bowel sounds, soft to palpation and non-tender Extremity normal to inspection, full ROM and no clubbing, cyanosis or edema Skin no rashes or lesions noted, no wounds and skin turgor normal Neuro oriented x3, moves all extremities, no focal motor deficits and no sensory deficits noted Sensorium / Orientation: awake and alert Speech: speech normal Psych affect normal Plan is to dc patient home today. Rest as per Winifred Baptiste CHANNEL MARKETING COORDINATOR-C's note, which I have reviewed and reconciled. Visit Charges Inpatient E&M: 87684 Disch Hosp
--- NOTE | 2021-04-19 14:58 | NURSING ---
This RN discussed discharge plans with the patient. The patient asked if he could stay until tomorrow morning so he could drive home then. This RN informed the patient that he is not permitted to drive upon discharge from the hospital due to the heart cath procedure performed today. The patient stated he has no one else to pick him up today or in the morning. He will have to call for transportation. This RN told the patient we can help arrange transport service if needed. This RN spoke with charge lpn Daniele. After returning to the patient's room, the patient stated he made transportation arrangements and will be picked up this afternoon at [facility] upon discharge.
--- NOTE | 2021-04-19 15:07 | CASEMGMT ---
Pt does not qualify for any home oxygen at this time and states no further concerns with going home at time of discharge. Swapna DUBOSE CM
--- NOTE | 2021-04-19 15:58 | NURSING ---
This RN discussed discharge instructions with the patient, including he will not be allowed to drive home today. The patient stated his ride will be here around [id number]. SPORT PSYCHOLOGIST took the patient in a wheelchair to the main entrance and there was no ride waiting. The patient admitted to the SPORT PSYCHOLOGIST that he lied and has no ride coming to pick him up and he is going to drive his car home. The patient then walked out the door to his car. This RN informed senior svp Daniele of the situation.
== END 2021-04-19 15:51 | disposition home or self-care (01) | DRG 286 ==
LOC: ED 17:34 → PCU 18:10
PROVIDERS: Internal Medicine; Nurse Practitioner Family; Physician Assistant; Admitting Provider Internal Medicine; Emergency Provider Emergency Medicine; Visit Provider Student in an Organized Health Care Education/Training Program
DX: I11.0 Hypertensive heart disease with heart failure (principal); I50.23 Acute on chronic systolic (congestive) heart failure; J96.01 Acute respiratory failure with hypoxia; J90 Pleural effusion, not elsewhere classified; E87.1 Hypo-osmolality and hyponatremia; E87.6 Hypokalemia; I48.91 Unspecified atrial fibrillation; I25.10 Atherosclerotic heart disease of native coronary artery without angina pectoris; I25.5 Ischemic cardiomyopathy; E78.5 Hyperlipidemia, unspecified; Z95.1 Presence of aortocoronary bypass graft; Z95.5 Presence of coronary angioplasty implant and graft; Z95.810 Presence of automatic (implantable) cardiac defibrillator; Z79.82 Long term (current) use of aspirin; Z79.01 Long term (current) use of anticoagulants; Z79.899 Other long term (current) drug therapy; Z87.891 Personal history of nicotine dependence; Z23 Encounter for immunization
CPT/HCPCS: 36415; 71045; 71046; 80048; 80053; 80061; 83735; 83880; 84100; 84132; 84443; 84484; 85025; 93005; 93306; 93455; 97110; 97162; 97166; 97530; 97535; 99152; 99153; 99251; 99285; J7040; 90686; A4216; C1760; C1769; G0463; J1940; Q9967